=== PATIENT | female | born 1940 | race Caucasian/White ===

== ENCOUNTER → 2019-01-14 10:30 | Outpatient (CLI) | payer MEDICARE, BC, SELFPAY ==
--- NOTE | 2019-01-14 10:37 | XR_ITS ---
PROCEDURE: XR SHOULDER RT MIN 2V CLINICAL INDICATION: RT SHOULDER PAIN COMPARISON: No exams were available for comparison FINDINGS: There are mild osteoarthritic changes of the acromioclavicular joint. There is mild subacromial stenosis. No fracture or dislocation is evident. No lytic or blastic change. The glenohumeral joint has an unremarkable appearance. IMPRESSION: Acromioclavicular arthropathy with subacromial stenosis Dictated by: Carson Pena MD 01/14/2019 10:48 Signed by: <Electronically signed by Carson Pena MD in [place]> 01/14/2019 10:48
== END ==
PROVIDERS: PCP Internal Medicine; Visit Provider Internal Medicine
DX: M25.511 Pain in right shoulder (principal)
CPT/HCPCS: 73030

== ENCOUNTER → 2020-09-19 10:53 | Outpatient (CLI) | payer MEDICARE, BC, SELFPAY ==
--- NOTE | 2020-09-19 | XR_ITS ---
PROCEDURE: XR LUMBAR SPINE MIN 4V CLINICAL INDICATION: RT SCIATICA COMPARISON: No exams were available for comparison FINDINGS: Lumbar scoliosis convex left with 7 mm lateral translation of L4 on L5. There are 6 lumbar vertebra. No acute fracture or dislocation is evident. There is multilevel lumbar spondylosis with degenerative disc disease from L1-S1. 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 There is 5 mm retrolisthesis of L3 on L4. Degenerative changes are present in the SI joints. No lytic or blastic change. 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 Dictated by: Carson Pena MD 09/19/2020 11:58 Carson Pena MD in [place] 09/19/2020 11:58
--- NOTE | 2020-09-19 | XR_ITS ---
PROCEDURE: XR KNEE RT 3V CLINICAL INDICATION: RT KNEE PAIN COMPARISON: CR [id number] KNEE-3 VIEWS-RT from 09/05/2014 FINDINGS: No fracture or dislocation. No lytic or blastic change. There is normal mineralization. There are moderate osteoarthritic changes of the medial compartment with mild osteoarthritis of the lateral compartment and patellofemoral joint. Mildly prominent osteophytes are present medially. No acute fracture or dislocation. There is some heterogeneous increased density in the intramedullary region of the distal femur and may be due to a bone infarction. This is slightly become more sclerotic compared to the previous exam. The osteoarthritic changes at the medial compartment are slightly progressed Other findings:None. IMPRESSION: Osteoarthritis of all 3 compartments greater at the medial compartment. Dictated by: Carson Pena MD 09/19/2020 11:59 Carson Pena MD in [place] 09/19/2020 11:59
== END ==
PROVIDERS: PCP Internal Medicine; Visit Provider Internal Medicine
DX: M54.31 Sciatica, right side (principal); M25.561 Pain in right knee
CPT/HCPCS: 72110; 73562

== ENCOUNTER → 2021-06-25 11:46 | Outpatient (CLI) | payer MEDICARE, BC, SELFPAY ==
[2021-06-25 13:37] LABS: Basophils # 0.2 K/mm3 (0-0.2); Basophils % 1.6 % (0.1-2.0); Eosinophils # 0.3 K/mm3 (0.0-0.4); Eosinophils % 2.2 % (0.1-12.0); Hematocrit 41.5 % (37.0-47.0); Hemoglobin 13.1 g/dL (12.2-16.2); Lymphocytes # 3.3 K/mm3 (0.7-4.5); Mean Corpuscular HGB Conc 31.5 g/dL (31.8-35.4); Mean Corpuscular Volume 95.1 fl (81-99); Mean Platelet Volume 8.7 fl (7.4-10.4); Monocytes # 0.9 K/mm3 (0.1-1.0); Monocytes % 7.1 % (1.7-9.3); Neutrophils # 8.4 K/mm3 (1.8-7.8); Neutrophils % 64.1 % (37.0-80.0); Platelet Count 373 K/mm3 (142-424); Red Blood Count 4.36 M/mm3 (4.20-5.40); Red Cell Distribution Width 13.2 % (11.5-17.5); White Blood Count 13.1 K/mm3 (4.8-10.8)
[2021-06-25 14:30] LABS: Alanine Aminotransferase 21 U/L (12-78); Albumin Level 4.4 g/dl (3.5-5.0); Albumin/Globulin Ratio 1.6 (1.1-1.8); Alkaline Phosphatase 88 U/L (38-126); Anion Gap 14.1 mEq/L (5-15); Aspartate Amino Transferase 31 U/L (14-36); Bilirubin,Total 0.6 mg/dl (0.2-1.3); Blood Urea Nitrogen 17 mg/dl (7-17); Calcium 10.2 mg/dl (8.4-10.2); Carbon Dioxide 27 mmol/L (22.0-30.0); Chloride 102 mmol/L (98-107); Chol/HDL Ratio 2.3 (1-3.5); Cholesterol 137 mg/dl (140-200); Estimated Glomerular Filt Rate 60 ml/min (>60); GFR (African American) 73 ML/MIN (>60); Globulin 2.7 g/dL (1.3-3.2); Glucose 94 mg/dl (74-100); HDL Cholesterol 59 mg/dl (40-60); Potassium 5.1 mmoL/L (3.5-5.1); Sodium 138 mmol/L (136-145); Total Protein,Serum 7.1 g/dl (6.3-8.2); Triglycerides 149 mg/dl (30-150); VLDL Cholesterol 30 mg/dL (0-40)
[2021-06-25 14:40] LABS: Microalbumin < 6.000 mg/L (0-16.7)
[2021-06-25 14:41] LABS: Direct LDL Cholesterol 50.42 mg/dL (100-129)
[2021-06-25 15:01] LABS: Thyroid Stimulating Hormone 0.83 uIU/mL (0.465-4.68)
[2021-06-25 15:04] LABS: Hemoglobin A1C 6.1 % (4.0-6.0)
== END ==
PROVIDERS: Visit Provider Internal Medicine
DX: E11.42 Type 2 diabetes mellitus with diabetic polyneuropathy (principal); E78.5 Hyperlipidemia, unspecified; I10 Essential (primary) hypertension; J44.9 Chronic obstructive pulmonary disease, unspecified
CPT/HCPCS: 80053; 80061; 82043; 83036; 84443; 85025

== ENCOUNTER 2021-07-30 10:00 | Outpatient (RCR) | payer MEDICARE, BC, SELFPAY ==
--- NOTE | 2021-05-14 12:03 | HMH.PTOPEV ---
PT Outpatient Evaluation Rehab PT Outpatient Evaluation Start: 05/14/21 11:01 Freq: Status: Active Protocol: Document 05/14/21 11:30 SLIM (Rec: 05/14/21 12:03 SLIM [id number]) Electronically Signed By Manny Interiano, PT 05/14/21 11:30 Outpatient Therapy Subjective History Subjective History Pt reports h/o chronic right knee pain for ~6 months. Pt reports anterior and lateral aspect right knee pain, increased w/'being up on my feet'. Recent Xray of right knee has revealed tricompartment OA. PMH: chronic LBP Chief Complaint Pain,Stiff Symptom Type Ache,Dull Symptoms Relieved By Rest/Positioning,Heat Symptoms Aggravated By Standing,Physical Activity, Walking Prior Functional Limitations Housework,Standing,Walking, Stairs Current Functional Limitations Housework,Standing,Walking, Stairs Symptom Description Constant but Variable Level of pain today (0-10) 3 Pain scale - at its best (0-10) 3 Pain scale - at its worst (0-10) 8 Hip/Knee Eval Gait Observation General Gait Pattern Observation Antalgic Gait Assistive Device Assistive Devices None / NA Palpation Tenderness right Knee Palpation Finding Tenderness Knee Palpation Overall Comment lateral jt line 1-2/4 MMT Hip Flexion Strength Grade 3+ Fair+ Hip Abduction Strength Grade 4- Good- Hip Adduction Strength Grade 4- Good- Hip External Rotation Strength Grade 4 Good Hip Internal Rotation Strength Grade 4 Good Knee Extension Strength Grade 4 Good Knee Flexion Strength Grade 4 Good ROM Knee Flexion Active Range of Motion ( 0-132 degrees) Effusion joint effusion knee exam standard right Mid - Patellar Circumerential Measure ( 36 cm) Outpatient Therapy Assessment Impairments Problems/Impairmments Palpation Tenderness,Impaired Range of Motion,Impaired Strength,Impaired Gait Pattern ,Impaired Walking,Impaired Standing,Impaired Household Care,Impaired Stair Climbing, Subjective C/O Pain,Impaired Self Care/Self Management Prognosis Rehab Potential Good Clinical Impression Consistent with Diagnosis Yes Short Term Goals Number of Weeks 4 Decreased Palpatio
== END 2021-07-30 10:05 | disposition home or self-care (01) ==
LOC: PT 10:00
PROVIDERS: PCP Internal Medicine; Visit Provider Internal Medicine
DX: M25.561 Pain in right knee (principal)
CPT/HCPCS: 97010; 97014; 97110; 97140; 97163; 97164; 97530; G0283

== ENCOUNTER → 2021-08-06 15:41 | Outpatient (CLI) | payer MEDICARE, BC, SELFPAY ==
--- NOTE | 2021-08-06 15:49 | XR_ITS ---
FINAL REPORT CLINICAL HISTORY: KNEE PAIN, pt unable to fully extend leg COMPARISON: September 19, 2020 FINDINGS: RIGHT KNEE 3 views of the right knee were obtained. There is no acute fracture or dislocation. There is moderate narrowing of the medial compartment joint space. There are moderate hypertrophic changes of the medial joint margin. Soft tissues are unremarkable. IMPRESSION: Moderate narrowing of the medial compartment joint space. Moderate hypertrophic changes of the medial joint margin. Reviewed, Interpreted and Dictated by Robbi Linder MD Transcribed by Rachana Ryan Authenticated by Robbi Linder MD on 08/06/2021 04:44:09 PM [facility]
--- NOTE | 2021-08-06 15:49 | XR_ITS ---
FINAL REPORT CLINICAL HISTORY: CHRONIC HIP PAIN, nki FINDINGS: RIGHT HIP Two views of the right hip including an AP pelvis demonstrate no acute fracture or dislocation. There is advanced right hip joint space narrowing and moderate left hip joint space narrowing. There is degenerative cyst formation in the right acetabulum and femoral head consistent with osteoarthritis. There is moderate protrusio deformity the right acetabulum. There are hypertrophic changes of degenerative disc disease in the lower lumbar spine. There is no soft tissue abnormality. IMPRESSION: Findings consistent with osteoarthritis. Reviewed, Interpreted and Dictated by Robbi Linder MD Transcribed by Rachana Ryan Authenticated by Robbi Linder MD on 08/06/2021 04:44:10 PM [facility]
== END ==
PROVIDERS: PCP Internal Medicine; Visit Provider Internal Medicine
DX: M25.551 Pain in right hip (principal); M25.561 Pain in right knee
CPT/HCPCS: 73502; 73562

== ENCOUNTER → 2021-12-25 11:54 | Outpatient (CLI) | payer MEDICARE, BC, SELFPAY ==
[2021-12-25 13:45] LABS: Chloride 102 mmol/L (98-107)
[2021-12-25 13:46] LABS: Sodium 138 mmol/L (136-145)
[2021-12-25 13:48] LABS: Alanine Aminotransferase 24 U/L (12-78); Anion Gap 14.1 mEq/L (5-15); Aspartate Amino Transferase 35 U/L (14-36); Blood Urea Nitrogen 19 mg/dl (7-17); Carbon Dioxide 28 mmol/L (22.0-30.0); Estimated Glomerular Filt Rate 53 ml/min (>60); GFR (African American) 64 ML/MIN (>60)
[2021-12-25 13:49] LABS: Albumin Level 4.6 g/dl (3.5-5.0); Albumin/Globulin Ratio 1.7 (1.1-1.8); Alkaline Phosphatase 104 U/L (38-126); Bilirubin,Total 0.7 mg/dl (0.2-1.3); Calcium 10.4 mg/dl (8.4-10.2); Chol/HDL Ratio 2.4 (1-3.5); Cholesterol 153 mg/dl (140-200); Globulin 2.7 g/dL (1.3-3.2); Glucose 111 mg/dl (74-100); HDL Cholesterol 63 mg/dl (40-60); Total Protein,Serum 7.3 g/dl (6.3-8.2); Triglycerides 193 mg/dl (30-150); VLDL Cholesterol 39 mg/dL (0-40)
[2021-12-25 13:52] LABS: Potassium 6.1 mmoL/L (3.5-5.1)
[2021-12-25 14:44] LABS: Hemoglobin A1C 6.2 % (4.0-6.0)
[2021-12-26 09:38] LABS: Direct LDL Cholesterol 55 mg/dL (100-129)
== END ==
PROVIDERS: PCP Internal Medicine; Visit Provider Internal Medicine
DX: E11.42 Type 2 diabetes mellitus with diabetic polyneuropathy (principal); E78.5 Hyperlipidemia, unspecified; Z79.84 Long term (current) use of oral hypoglycemic drugs
CPT/HCPCS: 80053; 80061; 83036

== ENCOUNTER 2021-12-25 15:09 | Emergency (ER) | payer MEDICARE, BC, SELFPAY ==
[2021-12-25 15:20] VITALS: BP 138/79; PULSE 72; RESP 18; TEMP 36.7; O2SAT 98; BMI 30.9
--- NOTE | 2021-12-25 15:21 | XR_ITS ---
FINAL REPORT CLINICAL HISTORY: FALL FINDINGS: LEFT ELBOW 3 views were obtained. There is moderate degenerative change with bony overgrowth anteriorly. There is a joint effusion or hemarthrosis. No fracture is identified. IMPRESSION: Joint effusion or hemarthrosis without a well-defined fracture. Reviewed, Interpreted and Dictated by Maco Mora III, MD Transcribed by Darryl Linton Authenticated and [facility]
--- NOTE | 2021-12-25 15:55 | HMH.EDUTC ---
[facility] – [place] Disposition Clinical Impression: Elbow contusion Qualifiers: Encounter type: initial encounter Laterality: left Qualified Code(s): S50.02XA - Contusion of left elbow, initial encounter Disposition: Home, Self-Care Condition on Discharge: Good Instructions: How To Perform RICE (Rest, Ice, Compress, Elevate) Additional Instructions: *RICE, Rest the extremity, Ice 15-20 minutes 3-4 times daily, Compress- wear the gunnar wrap as discussed as much as possible to help reduce swelling and pain, Elevate the extremity when at rest *Gunnar wrap and sling is for support and help control swelling, use it except in the shower. Be sure that is not to tight but not to loose either *Elevate when resting *Ibuprofen as directed on package every 6-8 hours as needed for pain an inflammation if your doctor has said you can take it If need something more can take Tylenol in between doses of Ibuprofen to help Immediately follow up with your family doctor for new or worsening of symptoms, or no noticeable improvement over the next 3-[address] Retana office for appointment on Thursday Straight to ER if any life threatening symptoms Referrals: Hai House MD [Primary Care Provider] - As needed Anthony Tsai JR, MD [Physician] - As needed (Call office tomorrow for appointment on Thursday) Time of Disposition: 16:30 Medical Decision Making - Jacky Inquiry Pt receiving controlled substance: No Jacky was queried for this patient: No Vital Signs: 12/25/21 15:20 Temperature 98.0 F Temperature Source Oral Pulse Rate [Right Brachial] 72 Respiratory Rate 18 Blood Pressure [Right Arm] 138/79 Blood Pressure Mean [Right Arm] 98 Blood Pressure Source [Right Arm] Automatic Cuff Blood Pressure Position [Right Arm] Sitting 02 Sat by Pulse Oximetry 98 Oxygen Delivery Method Room Air - Radiology Data #1 Image(s): Elbow Image Reviewed: Yes I have reviewed radiologist's interpretation FINDINGS: LEFT ELBOW 3 views were obtained. There is moderate degenerative change with bony overgrowth anteriorly. There is a joint effusion or hemarthrosis. No fracture is identified. IMPRESSION: Joint effusion or hemarthrosis without a well-defined fracture. - Physician Consults Physician Consulted: Dr Tsai Time: 16:31 Reason -: Orthopedic Eval/Care Comment/Response: Spoke with Dr Tsai about xray reading and he advised to have her follow up in the office on Thursday and agreed with plan of care JUAN acewrap and sling [facility] – [place] HPI - General Stated complaint: AO 12/25 @1400 FELL HURT left elbow Time Seen by Provider: 12/25/21 15:55 Mode of Arrival: Ambulatory Source of Information: Patient Limitations: No Limitations Description of Symptoms (Recalled from Triage Doc. by RN): PATIENT C/O PAIN TO LEFT ELBOW AFTER FALLING ON IT HEENT Symptoms (Recalled from RN notes): No Resp Symptoms (Recalled from RN notes): No Skin Symptoms (Recalled from RN notes): No MS Symptoms (Recalled from RN notes): Yes Functional Status (Recalled from RN notes): WNL - History of Present Illness Provider Complaint: Patient states that she walked out on the deck and it had been raining and it was a little wet and she slipped and fell and landed on her left elbow area States that she has been having pain in left elbow with movement ever since so she came in to get it checked out - Related Data Home Medications Medication Instructions Recorded Confirmed atorvastatin 20 mg tablet 20 mg PO DAILY tab 08/30/21 08/30/21 levothyroxine 88 mcg tablet 88 mcg PO DAILY tab 08/30/21 08/30/21 meloxicam 7.5 mg tablet 7.5 mg PO DAILY tab 08/30/21 08/30/21 metformin 500 mg tablet 500 mg PO DAILY tab 08/30/21 08/30/21 sucralfate 1 gram tablet 1 g PO ONCE tab 08/30/21 08/30/21 Allergies Allergy/AdvReac Type Severity Reaction Status Date / Time levofloxacin Allergy Verified 12/25/21 15:35 Penicillins Allergy Verified 12/25/21 15:35 - Worker's Comp Is this a Worker
[2021-12-25 16:37] VITALS: BP 133/88; PULSE 68; RESP 16; TEMP 36.8; O2SAT 99
== END 2021-12-25 16:40 | disposition home or self-care (01) ==
PROVIDERS: Emergency Provider Nurse Practitioner; PCP Internal Medicine
DX: S50.02XA Contusion of left elbow, initial encounter (principal); W01.0XXA Fall on same level from slipping, tripping and stumbling without subsequent striking against object, initial encounter
CPT/HCPCS: 73080; 80053; 80061; 83036; 99212; G0463

== ENCOUNTER → 2022-01-01 12:25 | Outpatient (CLI) | payer MEDICARE, BC, SELFPAY ==
[2022-01-01 15:27] LABS: Anion Gap 14.4 mEq/L (5-15); Blood Urea Nitrogen 14 mg/dl (7-17); Calcium 9.7 mg/dl (8.4-10.2); Carbon Dioxide 25 mmol/L (22.0-30.0); Chloride 101 mmol/L (98-107); Estimated Glomerular Filt Rate 53 ml/min (>60); GFR (African American) 64 ML/MIN (>60); Glucose 151 mg/dl (74-100); Potassium 4.4 mmoL/L (3.5-5.1); Sodium 136 mmol/L (136-145)
== END ==
PROVIDERS: PCP Internal Medicine; Visit Provider Internal Medicine
DX: S50.02XA Contusion of left elbow, initial encounter (principal)
CPT/HCPCS: 80048

== ENCOUNTER → 2022-01-08 09:20 | Outpatient (CLI) | payer MEDICARE, BC, SELFPAY ==
--- NOTE | 2022-01-08 09:28 | XR_ITS ---
FINAL REPORT CLINICAL HISTORY: left elbow pain COMPARISON: December 25, 2021 FINDINGS: LEFT ELBOW Three views were obtained. There is a large fracture fragment on the lateral view that lies superior to the radial head. The fracture fragment appears to arise from the lateral margin of the radial head. The fracture fragment measures 1.7 cm. The joint spaces are intact. The previously noted joint effusion has decreased in size. IMPRESSION: Radial head fracture. Reviewed, Interpreted and Dictated by Robbi Linder MD Transcribed by Shonda Gonzalez Authenticated and [facility]
--- NOTE | 2022-01-08 10:21 | XR_ITS ---
FINAL REPORT CLINICAL HISTORY: Pt fell 2 wks ago, pain @ ulnar head of Lt wrist FINDINGS: LEFT WRIST Three views of the left wrist were obtained. There is a well corticated ossific density distal to the ulna that measures 9 mm. There is no significant positive or negative ulnar variance. There are advanced changes of osteoarthritis at the basilar joint. The soft tissues are unremarkable. IMPRESSION: Well corticated ossific density distal to the ulna. Advanced changes of osteoarthritis. Reviewed, Interpreted and Dictated by Robbi Linder MD Transcribed by Shonda Gonzalez Authenticated and [facility]
== END ==
PROVIDERS: PCP Internal Medicine; Visit Provider Nurse Practitioner Acute Care
DX: M25.532 Pain in left wrist; S50.02XA Contusion of left elbow, initial encounter
CPT/HCPCS: 73080; 73110

== ENCOUNTER 2022-01-20 15:00 | Emergency (ER) | payer MEDICARE, BC, SELFPAY ==
[2022-01-20 15:03] VITALS: BP 191/108; PULSE 122; RESP 18; O2SAT 95; BMI 26.6
--- NOTE | 2022-01-20 15:05 | PC.NURSE ---
stroke alert called, notified radiology
--- NOTE | 2022-01-20 15:06 | PC.NURSE ---
HATTIE CHACON at
[2022-01-20 15:10] VITALS: BMI 27.3
--- NOTE | 2022-01-20 15:10 | CT_ITS ---
PROCEDURE INFORMATION: Exam: CTA Neck With Contrast Exam date and time: 01/20/2022 3:17 PM Age: 81 years old Clinical indication: Stroke-like symptoms; Altered mental status/memory loss; Additional info: Stroke alert TECHNIQUE: Imaging protocol: Computed tomographic angiography of the neck with contrast. 3D rendering (Not supervised by radiologist): MIP and/or 3D reconstructed images were created by the technologist. Radiation optimization: All CT scans at this facility use at least one of these dose optimization techniques: automated exposure control; mA and/or kV adjustment per patient size (includes targeted exams where dose is matched to clinical indication); or iterative reconstruction. Contrast material: ISOVUE; Contrast volume: 100 ml; Contrast route: INTRAVENOUS (IV); COMPARISON: No relevant prior exams. FINDINGS: Right common carotid artery: No stenosis. No dissection or occlusion. Right internal carotid artery: Nonflow limiting plaque of the bulb. The lumen is narrowed by 20-30%. The remaining artery is patent. No flow limiting stenosis or occlusion. Right external carotid artery: Flow-limiting plaque at the origin with the lumen narrowed by 70-80%. Branch vessels fill normally. Left common carotid artery: No stenosis. No dissection or occlusion. Left internal carotid artery: Flow-limiting stenosis of the bulb with the lumen narrowed by 80-90%. The more distal artery fills normally. Left external carotid artery: Flow-limiting plaque at the origin with the lumen narrowed by 90-99%. Right vertebral artery: No stenosis. No dissection or occlusion. Left vertebral artery: No stenosis. No dissection or occlusion. Soft tissues: Normal. No significant soft tissue swelling. Bones/joints: Lnot-mg-jgwqqyee degenerative changes of the spine. Diffuse idiopathic skeletal hyperostosis. No fractures. IMPRESSION: 1. Flow-limiting stenosis of the left carotid bulb with the lumen narrowed by 80-90%. 2. Non flow-limiting plaque of the right carotid bulb. 3. Flow-limiting plaque of the proximal external carotid arteries bilaterally. REFERENCES: NASCET CRITERIA. The degree of stenosis in the cervical segment of the internal carotid artery is based on NASCET criteria. Normal is no stenosis. Mild is less than 50% stenosis. Moderate is 50-69% stenosis. Severe is 70% to 99% stenosis. Total occlusion is no detectable patent lumen.
--- NOTE | 2022-01-20 15:10 | CT_ITS ---
PROCEDURE INFORMATION: Exam: CT Head Without Contrast Exam date and time: 01/20/2022 3:09 PM Age: 81 years old Clinical indication: Stroke-like symptoms; Altered mental status/memory loss; Additional info: Stroke alert TECHNIQUE: Imaging protocol: Computed tomography of the head without contrast. Radiation optimization: All CT scans at this facility use at least one of these dose optimization techniques: automated exposure control; mA and/or kV adjustment per patient size (includes targeted exams where dose is matched to clinical indication); or iterative reconstruction. Other technique: STROKE PROTOCOL was implemented. COMPARISON: No relevant prior studies available. FINDINGS: Brain: There is low attenuation abnormality in the periventricular white matter consistent with chronic microvascular ischemic changes. There are chronic brainstem ischemic changes. There is basal ganglia calcification. There is moderate cerebral and cerebellar atrophy. There is moderate intracranial vascular calcification. Cerebral ventricles: No ventriculomegaly. Paranasal sinuses: Visualized sinuses are unremarkable. No fluid levels. Mastoid air cells: Visualized mastoid air cells are well aerated. Bones/joints: Unremarkable. No acute fracture. Soft tissues: Unremarkable. IMPRESSION: 1. There is low attenuation abnormality in the periventricular white matter consistent with chronic microvascular ischemic changes. If an acute infarct is a clinical concern, follow-up MRI with diffusion imaging is recommended. 2. There are chronic brainstem ischemic changes. 3. There is moderate cerebral and cerebellar atrophy. ASSESSMENT: ASPECTS (Trini Stroke Program Early CT Score) is 10.
--- NOTE | 2022-01-20 15:10 | XR_ITS ---
PROCEDURE INFORMATION: Exam: XR Chest Exam date and time: 01/20/2022 3:40 PM Age: 81 years old Clinical indication: Shortness of breath; Additional info: Sob/cp TECHNIQUE: Imaging protocol: Radiologic exam of the chest. Views: 1 view. COMPARISON: CT ANGIO NECK 01/20/2022 3:17 PM FINDINGS: Lungs: Atelectasis and/or early infiltrative changes noted within both lung bases. Bilateral hyperinflation is present. Pleural spaces: Unremarkable. No pleural effusion. No pneumothorax. Heart/Mediastinum: Unremarkable. No cardiomegaly. Diaphragm: There is nonspecific elevation of the right hemidiaphragm. Bones/joints: Unremarkable. IMPRESSION: 1. Atelectasis and/or early infiltrative changes noted within both lung bases. 2. Bilateral hyperinflation is present.
--- NOTE | 2022-01-20 15:10 | CT_ITS ---
PROCEDURE INFORMATION: Exam: CTA Head With Contrast, Arteriography Exam date and time: 01/20/2022 3:17 PM Age: 81 years old Clinical indication: Stroke-like symptoms; Altered mental status/memory loss; Additional info: Stroke alert TECHNIQUE: Imaging protocol: Computed tomographic angiography of the head with contrast. Exam focused on the arteries. 3D rendering (Not supervised by radiologist): MIP and/or 3D reconstructed images were created by the technologist. Radiation optimization: All CT scans at this facility use at least one of these dose optimization techniques: automated exposure control; mA and/or kV adjustment per patient size (includes targeted exams where dose is matched to clinical indication); or iterative reconstruction. Contrast material: ISOVUE; Contrast volume: 100 ml; Contrast route: INTRAVENOUS (IV); COMPARISON: CT HEAD/BRAIN WO CON 01/20/2022 3:09 PM FINDINGS: ANTERIOR CIRCULATION: Right internal carotid artery: Unremarkable. Intracranial segment is patent with no significant stenosis. No aneurysm. Right middle cerebral artery: Unremarkable. No occlusion or significant stenosis. No aneurysm. Right anterior cerebral artery: Unremarkable. No occlusion or significant stenosis. No aneurysm. Left internal carotid artery: Unremarkable. Intracranial segment is patent with no significant stenosis. No aneurysm. Left middle cerebral artery: Unremarkable. No occlusion or significant stenosis. No aneurysm. Left anterior cerebral artery: Unremarkable. No occlusion or significant stenosis. No aneurysm. POSTERIOR CIRCULATION: Right vertebral artery: Unremarkable. No occlusion or significant stenosis. No aneurysm. Left vertebral artery: Unremarkable. No occlusion or significant stenosis. No aneurysm. Basilar artery: Unremarkable. No occlusion or significant stenosis. No aneurysm. Right posterior cerebral artery: Unremarkable. No occlusion or significant stenosis. No aneurysm. Left posterior cerebral artery: Normal variant origin. Otherwise, unremarkable. No flow-limiting stenosis or occlusion. Brain: No acute intracranial changes. Chronic microvascular ischemia. Generalized cerebral atrophy. Cerebral ventricles: No ventriculomegaly. Bones/joints: Unremarkable. No acute fracture. Soft tissues: Unremarkable. IMPRESSION: Unremarkable intracranial vasculature.
--- NOTE | 2022-01-20 15:10 | HMH.EDNEU ---
Discharge Plan Disposition Patient Disposition: Xfer Other Condition: Good Prescriptions Prescriptions: No Action meloxicam 7.5 mg tablet 7.5 mg PO DAILY Label Comments: TAKE 1 TABLET BY MOUTH TWICE DAILY WITH FOOD FOR ARTHRITIS/PAIN levothyroxine 88 mcg tablet 88 mcg PO DAILY Label Comments: TAKE 1 TABLET BY MOUTH ONCE DAILY FOR THYROID metformin 500 mg tablet 500 mg PO BID Label Comments: TAKE 1 TABLET BY MOUTH TWICE DAILY WITH MEALS atorvastatin 20 mg tablet 20 mg PO DAILY Label Comments: TAKE 1 TABLET BY MOUTH EVERY DAY AT BEDTIME sucralfate 1 gram tablet 1 g PO ACHS [id number] serr [Osteo Bi-Flex (5-Loxin)] 1,500-400-100 mg-unit-mg tablet 1 tab PO DAILY Rx Instructions: give after food/meal Co [id number] E-Fish Oil 25-150-200 mg-mg-unit capsule 1 cap PO DAILY Linzess 72 mcg capsule 72 mcg PO DAILY loratadine [Claritin] 10 mg tablet 10 mg PO DAILY cyanocobalamin (vitamin B-12) 1,000 mcg capsule 1,000 mcg PO DAILY Referrals Follow up/Referrals: Hai House MD [Primary Care Provider] - See instructions Clinical Impressions Clinical Impression: Stroke-like symptoms, Carotid artery stenosis Discharge ED Provider: Corey Farnsworth HPI General Chief Complaint: Neuro Symptoms/Deficit Stated Complaint: right arm stiffness Time Seen by Provider: 01/20/22 15:13 Mode of Arrival: Ambulatory Source of Information: Spouse History of Present Illness HPI Narrative: 81-year-old female with history of hyperlipidemia, hypertension, was recently taken off of her blood pressure medication, enalapril due to potassium abnormality. She presents with speech deficit and right arm numbness onset around 130 today. 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 They both report symptoms are somewhat improved at this time. She denies headache, blurry or double vision, weakness of the extremities. Denies any prior history of stroke or intracranial hemorrhage. She is not on any anticoagulant. No fevers chills, nausea, vomiting or any other symptoms at this time. Stroke alert called upon arrival Time: 15:14 Date last observed normal: 01/20/22 Time last observed normal: 13:30 Timing confirmed by: spouse Related Data Home Medications Medication Instructions Recorded Confirmed atorvastatin 20 mg tablet 20 mg PO DAILY Cholesterol 08/30/21 01/20/22 levothyroxine 88 mcg tablet 88 mcg PO DAILY hypothyroid 08/30/21 01/20/22 meloxicam 7.5 mg tablet 7.5 mg PO DAILY Arthritis 08/30/21 01/20/22 metformin 500 mg tablet 500 mg PO BID Diabetes 08/30/21 01/20/22 cyanocobalamin (vitamin B-12) 1,000 mcg PO DAILY Supplement 01/08/22 01/20/22 1,000 mcg capsule glucosamine [id number] 1 tab PO DAILY Supplement 01/08/22 01/20/22 chelsie 1,500 mg-400 unit-100 mg tablet (Osteo Bi-Flex (5-Loxin)) linaclotide 72 mcg capsule 72 mcg PO DAILY stomach 01/08/22 01/20/22 (Linzess) loratadine 10 mg tablet (Claritin) 10 mg PO DAILY allergies 01/08/22 01/20/22 sucralfate 1 gram tablet 1 g PO ACHS stomach 01/08/22 01/20/22 ubidecarenone-omega 3-vit E 25 1 cap PO DAILY 01/08/22 01/08/22 mg-150 (90-60) mg-200 unit capsule (Co B-[id number] E-Fish Oil) Allergies Allergy/AdvReac Type Severity Reaction Status Date / Time levofloxacin Allergy Verified 01/08/22 11:04 Penicillins Allergy Verified 01/08/22 11:04 Stroke Alert/NIH Score LOC Stroke Alert: Yes Stroke Alert date: 01/20/22 Stroke Alert time of activation: 15:15 Level of Consciousness: Alert LOC Questions: Answers both correctly LOC Commands: Obeys both correctly Facial/Visual Best Gaze: Normal Visual: No visual loss Facial Palsy: Normal Motor Motor Response, Left Arm: No drift/Amputation/Fused (Shank Skinner strength
--- NOTE | 2022-01-20 15:10 | PC.NURSE ---
fsbs 91
--- NOTE | 2022-01-20 15:11 | PC.NURSE ---
pt to CT via stretcher warehouse and receiving supervisor transporting pt.
--- NOTE | 2022-01-20 15:11 | PC.NURSE ---
Addendum entered by Hanna Childers RN 01/20/22 15:27: notified ER Original Note: per pt her PCP stopped her bp mediation enalapril on 12/25/21 r/t elevated potassium level.
[2022-01-20 15:16] LABS: POC Glucose,Bedside 91 (70-110)
[2022-01-20 15:23] LABS: Basophils # 0.1 K/mm3 (0-0.2); Eosinophils # 0.4 K/mm3 (0.0-0.4); Eosinophils % 2.8 % (0.1-12.0); Hematocrit 42.5 % (37.0-47.0); Hemoglobin 13.5 g/dL (12.2-16.2); Lymphocytes # 3.3 K/mm3 (0.7-4.5); Lymphocytes % 25.1 % (10-50); Mean Corpuscular HGB Conc 31.7 g/dL (31.8-35.4); Mean Corpuscular Hemoglobin 29.2 pg (27.0-31.2); Mean Platelet Volume 7.3 fl (7.4-10.4); Neutrophils # 8.2 K/mm3 (1.8-7.8); Neutrophils % 63.2 % (37.0-80.0); Platelet Count 402 K/mm3 (142-424); Red Blood Count 4.62 M/mm3 (4.20-5.40); Red Cell Distribution Width 13.7 % (11.5-17.5)
[2022-01-20 15:28] LABS: Alanine Aminotransferase 26 U/L (12-78); Albumin Level 4.3 g/dl (3.5-5.0); Albumin/Globulin Ratio 1.4 (1.1-1.8); Alkaline Phosphatase 139 U/L (38-126); Anion Gap 13.2 mEq/L (5-15); Aspartate Amino Transferase 39 U/L (14-36); Bilirubin,Total 0.3 mg/dl (0.2-1.3); Blood Urea Nitrogen 14 mg/dl (7-17); Calcium 9.9 mg/dl (8.4-10.2); Carbon Dioxide 24 mmol/L (22.0-30.0); Chloride 104 mmol/L (98-107); Creatinine Clearance Estimated 55 mL/min (50-200); Estimated Glomerular Filt Rate 80 ml/min (>60); GFR (African American) 97 ML/MIN (>60); Globulin 3.1 g/dL (1.3-3.2); Glucose 95 mg/dl (74-100); Magnesium 1.4 mg/dl (1.6-2.3); Potassium 4.2 mmoL/L (3.5-5.1); Sodium 137 mmol/L (136-145); Total Protein,Serum 7.4 g/dl (6.3-8.2)
--- NOTE | 2022-01-20 15:28 | PC.NURSE ---
pt return from CT at this time
[2022-01-20 15:31] LABS: Activated Partial Thrombo Time 24.5 seconds (22.8-30.6); INR 0.93 (0.9-1.1); Prothrombin Time 10.1 seconds (10.1-12.5)
--- NOTE | 2022-01-20 15:35 | ECG_ITS ---
APPROVED REPORT Exam: Resting ECG HR:110 bpm ECG Measurements Heart Rate 110 AXES SD 148 P 70 QRSd 84 QRS 64 QT 330 T 76 QTc 395 Conclusion SINUS TACHYCARDIA ABNORMAL RHYTHM ECG UNCONFIRMED REPORT Electronically signed by : Zeke Mims MD 01/21/2022 13:48:32
--- NOTE | 2022-01-20 15:37 | PC.NURSE ---
CT reading given to ER at this time.
--- NOTE | 2022-01-20 15:37 | PC.NURSE ---
vrad called at this time, wanting to verify that we have received CT head report on pt at this time.
[2022-01-20 15:40] LABS: Troponin I < 0.01 ng/ml (0.00-0.034)
--- NOTE | 2022-01-20 15:42 | PC.NURSE ---
rad at for portable cxr
[2022-01-20 15:48] VITALS: BP 162/95; PULSE 111; RESP 16; O2SAT 95
--- NOTE | 2022-01-20 16:15 | PC.NURSE ---
contacted [facility] to speak with stroke team per ER request
--- NOTE | 2022-01-20 16:22 | PC.NURSE ---
called [facility] for stroke team, they will call back
--- NOTE | 2022-01-20 16:56 | PC.NURSE ---
pt accepted at [facility] per Dr. Guzman
[2022-01-20 17:00] VITALS: BP 197/116; PULSE 121; RESP 20; O2SAT 97
[2022-01-20 17:01] LABS: Coronavirus 19, PCR Not Detected (NotDetected); Influenza A, PCR Not Detected (NotDetected); Influenza B, PCR Not Detected (NotDetected)
--- NOTE | 2022-01-20 17:01 | PC.NURSE ---
ER at discussing POC with pt and pt at this time. pt bp 197/116 HR 127 ER MD gave verbal order for Plavix 300 mg, states do not need to treat bp at this time but did ask me to start IVF 1L bolus
--- NOTE | 2022-01-20 17:13 | PC.NURSE ---
report called to LESLI Schreiber at [facility] ER at this time.
[2022-01-20 17:19] VITALS: BP 159/90; PULSE 120; RESP 20; O2SAT 96
[2022-01-20 17:19] LABS: Microscopic, Urine URINE MICROSCOPIC (MICROSCOPIC)
[2022-01-20 17:21] LABS: Appearance,Urine CLEAR (Clear); Bilirubin,Urine Negative (Negative); Blood, Urine TRACE-I (Negative); Color,Urine YELLOW (Yellow); Glucose,Urine (UA) Negative (Negative); Ketones,Urine Negative (Negative); Leukocyte Esterase,Urine Negative (Negative); Nitrate,Urine Negative (Negative); Protein,Urine Negative (Negative); Specific Gravity, Urine <= 1.005 (1.005-1.030); Urobilinogen,Urine 0.2 EU/dl (0.2)
--- NOTE | 2022-01-20 17:21 | PC.NURSE ---
[facility] notified of transfer
--- NOTE | 2022-01-20 17:26 | PC.NURSE ---
entered room to have pt sign transfer record. Pt and are on the phone with a family member. They are requesting that we call [facility] in [place] to see about transfer there. Stated to them that I will notify ER of their request and we will call [facility] and ask about transfer and let them know. ER updated, states to call [facility].
--- NOTE | 2022-01-20 17:32 | PC.NURSE ---
HATTIE CHACON speaking with stroke navigator at [facility]
--- NOTE | 2022-01-20 17:32 | PC.NURSE ---
shift change report given to pascual tovar and lauriern
[2022-01-20 17:42] LABS: Bacteria,Urine Trace /lpf; WBC,Urine Occasional #/hpf (0-3)
[2022-01-20 18:35] VITALS: BP 161/98; PULSE 112; RESP 18; TEMP 36.8; O2SAT 96
== END 2022-01-20 18:35 | disposition other institution (70) ==
PROVIDERS: Emergency Provider Emergency Medicine; PCP Internal Medicine
DX: R29.818 Other symptoms and signs involving the nervous system (principal); I65.29 Occlusion and stenosis of unspecified carotid artery; Z79.84 Long term (current) use of oral hypoglycemic drugs; Z79.899 Other long term (current) drug therapy; Z88.0 Allergy status to penicillin; Z88.1 Allergy status to other antibiotic agents; M19.90 Unspecified osteoarthritis, unspecified site; E11.9 Type 2 diabetes mellitus without complications; I10 Essential (primary) hypertension; E03.9 Hypothyroidism, unspecified; E78.00 Pure hypercholesterolemia, unspecified
CPT/HCPCS: 70450; 70496; 70498; 71045; 80053; 81001; 82962; 83735; 84484; 85025; 85610; 85730; 93005; 96365; 99291; C9803; Q9967; U0003; U0005

== ENCOUNTER → 2022-01-31 13:05 | Outpatient (CLI) | payer MEDICARE, BC, SELFPAY ==
[2022-01-31 15:54] LABS: Blood Urea Nitrogen 18 mg/dl (7-17); Calcium 9.8 mg/dl (8.4-10.2); Carbon Dioxide 29 mmol/L (22.0-30.0); Chloride 98 mmol/L (98-107); Estimated Glomerular Filt Rate 69 ml/min (>60); GFR (African American) 83 ML/MIN (>60); Glucose 72 mg/dl (74-100); Sodium 139 mmol/L (136-145)
== END ==
PROVIDERS: PCP Internal Medicine; Visit Provider Internal Medicine
DX: I10 Essential (primary) hypertension (principal); E87.5 Hyperkalemia; J44.9 Chronic obstructive pulmonary disease, unspecified
CPT/HCPCS: 80048

== ENCOUNTER → 2022-02-20 08:43 | Outpatient (CLI) | payer MEDICARE, BC, SELFPAY ==
--- NOTE | 2022-02-20 08:49 | XR_ITS ---
FINAL REPORT CLINICAL HISTORY: wrist sprain COMPARISON: January 08, 2022 FINDINGS: LEFT WRIST Three views demonstrate no acute fracture or dislocation. The visualized joint spaces are normally aligned. 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 There is a loose body adjacent to the trapezium which is stable. There is a chronic calcification distal to the ulna which is stable. IMPRESSION: Overall stable exam. Reviewed, Interpreted and Dictated by Maco Mora III, MD Transcribed by Rachana Ryan Authenticated and [facility]
--- NOTE | 2022-02-20 08:49 | XR_ITS ---
FINAL REPORT CLINICAL HISTORY: left elbow pain COMPARISON: January 08, 2022 FINDINGS: LEFT ELBOW 3 views were obtained. Again noted is a fracture of the lateral radial head. The radial head fracture fragment is in the antecubital fossa and is unchanged in position. There are mild degenerative changes. There is no soft tissue abnormality. IMPRESSION: Fracture of the lateral radial head with the fracture fragment in the antecubital fossa. Overall appearance is stable. Reviewed, Interpreted and Dictated by Maco Mora III, MD Transcribed by Rachana Ryan Authenticated and [facility]
== END ==
PROVIDERS: PCP Internal Medicine; Visit Provider Orthopaedic Surgery
DX: S63.502A Unspecified sprain of left wrist, initial encounter (principal); S52.122A Displaced fracture of head of left radius, initial encounter for closed fracture
CPT/HCPCS: 73080; 73110

== ENCOUNTER → 2022-05-05 12:31 | Outpatient (CLI) | payer MEDICARE, BC, SELFPAY ==
[2022-05-05 14:38] LABS: Basophils # 0.1 K/mm3 (0-0.2); Basophils % 0.7 % (0.1-2.0); Eosinophils # 0.2 K/mm3 (0.0-0.4); Eosinophils % 1.9 % (0.1-12.0); Hemoglobin 11.2 g/dL (12.2-16.2); Lymphocytes # 2.3 K/mm3 (0.7-4.5); Lymphocytes % 27.8 % (10-50); Mean Corpuscular HGB Conc 32.1 g/dL (31.8-35.4); Mean Corpuscular Hemoglobin 27.9 pg (27.0-31.2); Mean Corpuscular Volume 86.9 fl (81-99); Mean Platelet Volume 8.5 fl (7.4-10.4); Monocytes # 0.8 K/mm3 (0.1-1.0); Neutrophils # 4.9 K/mm3 (1.8-7.8); Neutrophils % 59.6 % (37.0-80.0); Platelet Count 443 K/mm3 (142-424); Red Blood Count 4.03 M/mm3 (4.20-5.40); Red Cell Distribution Width 15.5 % (11.5-17.5); White Blood Count 8.3 K/mm3 (4.8-10.8)
[2022-05-05 15:19] LABS: Alanine Aminotransferase 24 U/L (12-78); Albumin Level 4.2 g/dl (3.5-5.0); Albumin/Globulin Ratio 1.6 (1.1-1.8); Alkaline Phosphatase 114 U/L (38-126); Anion Gap 15.1 mEq/L (5-15); Aspartate Amino Transferase 31 U/L (14-36); Bilirubin,Total 0.2 mg/dl (0.2-1.3); Blood Urea Nitrogen 20 mg/dl (7-17); Calcium 9.9 mg/dl (8.4-10.2); Carbon Dioxide 23 mmol/L (22.0-30.0); Chloride 102 mmol/L (98-107); Chol/HDL Ratio 1.9 (1-3.5); Cholesterol 135 mg/dl (140-200); Estimated Glomerular Filt Rate 53 ml/min (>60); GFR (African American) 64 ML/MIN (>60); Globulin 2.7 g/dL (1.3-3.2); Glucose 110 mg/dl (74-100); HDL Cholesterol 72 mg/dl (40-60); Potassium 4.1 mmoL/L (3.5-5.1); Sodium 136 mmol/L (136-145); Total Protein,Serum 6.9 g/dl (6.3-8.2); Triglycerides 122 mg/dl (30-150); VLDL Cholesterol 24 mg/dL (0-40)
[2022-05-05 15:30] LABS: Direct LDL Cholesterol 37.04 mg/dL (100-129)
[2022-05-05 15:40] LABS: Hemoglobin A1C 5.9 % (4.0-6.0)
== END ==
PROVIDERS: PCP Internal Medicine; Visit Provider Internal Medicine
DX: E11.42 Type 2 diabetes mellitus with diabetic polyneuropathy (principal); I10 Essential (primary) hypertension; R53.83 Other fatigue; Z79.84 Long term (current) use of oral hypoglycemic drugs
CPT/HCPCS: 80053; 80061; 83036; 85025

== ENCOUNTER → 2022-09-03 12:50 | Outpatient (CLI) | payer MEDICARE, BC, SELFPAY ==
[2022-09-03 16:40] LABS: Basophils # 0.1 K/mm3 (0-0.2); Basophils % 0.6 % (0.1-2.0); Eosinophils # 0.2 K/mm3 (0.0-0.4); Eosinophils % 2.1 % (0.1-12.0); Hematocrit 34.8 % (37.0-47.0); Hemoglobin 10.8 g/dL (12.2-16.2); Lymphocytes # 2.6 K/mm3 (0.7-4.5); Lymphocytes % 29.6 % (10-50); Mean Corpuscular Hemoglobin 26.1 pg (27.0-31.2); Mean Corpuscular Volume 84.3 fl (81-99); Mean Platelet Volume 7.9 fl (7.4-10.4); Monocytes # 0.8 K/mm3 (0.1-1.0); Monocytes % 9.4 % (1.7-9.3); Neutrophils # 5.2 K/mm3 (1.8-7.8); Neutrophils % 58.3 % (37.0-80.0); Platelet Count 412 K/mm3 (142-424); Red Blood Count 4.13 M/mm3 (4.20-5.40); Red Cell Distribution Width 16.5 % (11.5-17.5); White Blood Count 8.9 K/mm3 (4.8-10.8)
[2022-09-03 16:55] LABS: Anion Gap 13.4 mEq/L (5-15); Blood Urea Nitrogen 17 mg/dl (7-17); Calcium 9.1 mg/dl (8.4-10.2); Carbon Dioxide 27 mmol/L (22.0-30.0); Chloride 101 mmol/L (98-107); Estimated Glomerular Filt Rate 60 ml/min (>60); GFR (African American) 73 ML/MIN (>60); Glucose 95 mg/dl (74-100); Potassium 4.4 mmoL/L (3.5-5.1); Sodium 137 mmol/L (136-145)
[2022-09-03 20:49] LABS: Hemoglobin A1C 5.9 % (4.0-6.0)
== END ==
PROVIDERS: PCP Internal Medicine; Visit Provider Internal Medicine
DX: E11.42 Type 2 diabetes mellitus with diabetic polyneuropathy (principal); I10 Essential (primary) hypertension; J44.9 Chronic obstructive pulmonary disease, unspecified; D64.9 Anemia, unspecified; M15.0 Primary generalized (osteo)arthritis; Z79.84 Long term (current) use of oral hypoglycemic drugs
CPT/HCPCS: 80048; 83036; 85025

== ENCOUNTER → 2022-12-03 13:18 | Outpatient (CLI) | payer MEDICARE, BC, SELFPAY ==
[2022-12-03 14:50] LABS: Basophils % 0.5 % (0.1-2.0); Eosinophils # 0.3 K/mm3 (0.0-0.4); Eosinophils % 2.8 % (0.1-12.0); Hematocrit 35.1 % (37.0-47.0); Hemoglobin 10.5 g/dL (12.2-16.2); Lymphocytes # 3.3 K/mm3 (0.7-4.5); Lymphocytes % 36.5 % (10-50); Mean Corpuscular Hemoglobin 24.1 pg (27.0-31.2); Mean Corpuscular Volume 80.4 fl (81-99); Mean Platelet Volume 7.1 fl (7.4-10.4); Monocytes # 0.8 K/mm3 (0.1-1.0); Monocytes % 8.8 % (1.7-9.3); Neutrophils # 4.6 K/mm3 (1.8-7.8); Neutrophils % 51.3 % (37.0-80.0); Platelet Count 362 K/mm3 (142-424); Red Blood Count 4.37 M/mm3 (4.20-5.40); Red Cell Distribution Width 15.6 % (11.5-17.5); White Blood Count 8.9 K/mm3 (4.8-10.8)
[2022-12-03 15:09] LABS: Alanine Aminotransferase 25 U/L (12-78); Albumin Level 4.4 g/dl (3.5-5.0); Albumin/Globulin Ratio 1.5 (1.1-1.8); Alkaline Phosphatase 118 U/L (38-126); Anion Gap 11.6 mEq/L (5-15); Aspartate Amino Transferase 33 U/L (14-36); Bilirubin,Total 0.3 mg/dl (0.2-1.3); Blood Urea Nitrogen 17 mg/dl (7-17); Calcium 9.7 mg/dl (8.4-10.2); Carbon Dioxide 28 mmol/L (22.0-30.0); Chloride 104 mmol/L (98-107); Chol/HDL Ratio 2.2 (1-3.5); Cholesterol 158 mg/dl (140-200); Estimated Glomerular Filt Rate 53 ml/min (>60); GFR (African American) 64 ML/MIN (>60); Glucose 86 mg/dl (74-100); HDL Cholesterol 72 mg/dl (40-60); Potassium 4.6 mmoL/L (3.5-5.1); Sodium 139 mmol/L (136-145); Total Protein,Serum 7.4 g/dl (6.3-8.2); Triglycerides 228 mg/dl (30-150); VLDL Cholesterol 46 mg/dL (0-40)
[2022-12-03 15:20] LABS: Direct LDL Cholesterol 48.15 mg/dL (100-129)
[2022-12-03 15:32] LABS: Hemoglobin A1C 6.6 % (4.0-6.0)
[2022-12-03 15:37] LABS: Thyroid Stimulating Hormone 2.76 uIU/mL (0.465-4.68)
[2022-12-03 15:54] LABS: Creatinine,Urine Random 21 mg/dL (Not Estab.)
[2022-12-03 16:01] LABS: Microalbumin < 6.000 mg/L (0-16.7)
== END ==
PROVIDERS: PCP Internal Medicine; Visit Provider Internal Medicine
DX: E11.59 Type 2 diabetes mellitus with other circulatory complications (principal); E11.42 Type 2 diabetes mellitus with diabetic polyneuropathy; I10 Essential (primary) hypertension; J44.9 Chronic obstructive pulmonary disease, unspecified; E03.9 Hypothyroidism, unspecified; E78.5 Hyperlipidemia, unspecified; M15.0 Primary generalized (osteo)arthritis; Z86.73 Personal history of transient ischemic attack (TIA), and cerebral infarction without residual deficits
CPT/HCPCS: 80053; 80061; 82043; 82570; 83036; 84443; 85025

== ENCOUNTER → 2023-01-05 10:03 | Outpatient (CLI) | payer MEDICARE, BC, SELFPAY ==
--- NOTE | 2023-01-05 10:09 | XR_ITS ---
FINAL REPORT CLINICAL HISTORY: MEAGAN SHOULDER PAIN COMPARISON: None FINDINGS: LEFT SHOULDER 3 views of the left shoulder were obtained. There is no acute fracture or dislocation. Mild hypertrophic changes of the AC joint. Visualized joint spaces are normally aligned. Soft tissues are unremarkable. IMPRESSION: No acute process. Reviewed, Interpreted and Dictated by Robbi Linder MD Transcribed by Candie Dennison Authenticated and [facility]
--- NOTE | 2023-01-05 10:09 | XR_ITS ---
FINAL REPORT CLINICAL HISTORY: MEAGAN SHOULDER PAIN COMPARISON: None FINDINGS: RIGHT SHOULDER Three views demonstrate no acute fracture or dislocation. There are mild hypertrophic changes in the AC joint. There are small osteophytes along the undersurface of the AC joint. The visualized joint spaces are normally aligned. The soft tissues are unremarkable. IMPRESSION: No acute process. Reviewed, Interpreted and Dictated by Robbi Linder MD Transcribed by Candie Dennison Authenticated and [facility]
== END ==
PROVIDERS: PCP Internal Medicine; Visit Provider Internal Medicine
DX: M25.511 Pain in right shoulder (principal); M25.512 Pain in left shoulder
CPT/HCPCS: 73030

== ENCOUNTER 2023-06-08 12:26 | Outpatient (CLI) | payer MEDICARE, BC, SELFPAY ==
[2023-06-08 14:52] LABS: Basophils # 0.1 K/mm3 (0-0.2); Basophils % 0.4 % (0.1-2.0); Eosinophils # 0.4 K/mm3 (0.0-0.4); Eosinophils % 2.4 % (0.1-12.0); Hematocrit 36.8 % (37.0-47.0); Hemoglobin 11.6 g/dL (12.2-16.2); Lymphocytes # 3.6 K/mm3 (0.7-4.5); Mean Corpuscular HGB Conc 31.6 g/dL (31.8-35.4); Mean Corpuscular Hemoglobin 25.5 pg (27.0-31.2); Mean Corpuscular Volume 80.7 fl (81-99); Monocytes # 1.1 K/mm3 (0.1-1.0); Monocytes % 6.5 % (1.7-9.3); Neutrophils # 12.1 K/mm3 (1.8-7.8); Neutrophils % 69.7 % (37.0-80.0); Platelet Count 398 K/mm3 (142-424); Red Blood Count 4.56 M/mm3 (4.20-5.40); White Blood Count 17.4 K/mm3 (4.8-10.8)
[2023-06-08 14:54] LABS: MANUAL DIFFERENTIAL MANUAL DIFFERENTIAL (MANUAL DIFF)
[2023-06-08 15:29] LABS: Lymphocytes % 28 % (10-50); Monocytes % 2 % (2-9); Neutrophils % 70 % (42-76); Platelet Estimate Normal; RBC Morphology Normal; Total Cells Counted 100
[2023-06-08 16:26] LABS: Alanine Aminotransferase 27 U/L (12-78); Albumin Level 4.3 g/dl (3.5-5.0); Albumin/Globulin Ratio 1.3 (1.1-1.8); Alkaline Phosphatase 104 U/L (38-126); Anion Gap 17.8 mEq/L (5-15); Aspartate Amino Transferase 35 U/L (14-36); Bilirubin,Total 0.4 mg/dl (0.2-1.3); Blood Urea Nitrogen 19 mg/dl (7-17); Calcium 9.2 mg/dl (8.4-10.2); Carbon Dioxide 27 mmol/L (22.0-30.0); Chloride 100 mmol/L (98-107); Chol/HDL Ratio 2.8 (1-3.5); Cholesterol 156 mg/dl (140-200); Estimated Glomerular Filt Rate 53 ml/min (>60); GFR (African American) 64 ML/MIN (>60); Globulin 3.3 g/dL (1.3-3.2); Glucose 114 mg/dl (74-100); HDL Cholesterol 55 mg/dl (40-60); Potassium 4.8 mmoL/L (3.5-5.1); Sodium 140 mmol/L (136-145); Total Protein,Serum 7.6 g/dl (6.3-8.2); Triglycerides 234 mg/dl (30-150); VLDL Cholesterol 47 mg/dL (0-40)
[2023-06-08 21:34] LABS: Creatinine,Urine Random 84 mg/dL (Not Estab.)
[2023-06-08 21:35] LABS: Microalbumin/Creatinine Ratio 37.2
[2023-06-08 22:36] LABS: Thyroid Stimulating Hormone 3.99 uIU/mL (0.465-4.68)
[2023-06-08 23:07] LABS: Hemoglobin A1C 6.8 % (4.0-6.0)
== END 2023-06-08 23:59 ==
LOC: LAB.DROPOF 12:26
PROVIDERS: PCP Internal Medicine; Visit Provider Internal Medicine
DX: E11.42 Type 2 diabetes mellitus with diabetic polyneuropathy (principal); E11.59 Type 2 diabetes mellitus with other circulatory complications; I10 Essential (primary) hypertension; E03.9 Hypothyroidism, unspecified; E78.5 Hyperlipidemia, unspecified; M15.0 Primary generalized (osteo)arthritis; Z79.84 Long term (current) use of oral hypoglycemic drugs
CPT/HCPCS: 80053; 80061; 82043; 82570; 83036; 84443; 85007; 85025

== ENCOUNTER 2023-07-07 16:44 | Outpatient (CLI) | payer MEDICARE, BC, SELFPAY ==
[2023-07-07 17:15] LABS: Basophils # 0.1 K/mm3 (0-0.2); Basophils % 0.5 % (0.1-2.0); Eosinophils # 0.4 K/mm3 (0.0-0.4); Eosinophils % 2.9 % (0.1-12.0); Hematocrit 36.5 % (37.0-47.0); Hemoglobin 11.4 g/dL (12.2-16.2); Lymphocytes # 3.9 K/mm3 (0.7-4.5); Lymphocytes % 31.7 % (10-50); Mean Corpuscular HGB Conc 31.3 g/dL (31.8-35.4); Mean Corpuscular Hemoglobin 25.1 pg (27.0-31.2); Mean Corpuscular Volume 80.3 fl (81-99); Mean Platelet Volume 8.2 fl (7.4-10.4); Monocytes # 1.1 K/mm3 (0.1-1.0); Monocytes % 8.8 % (1.7-9.3); Neutrophils # 6.9 K/mm3 (1.8-7.8); Neutrophils % 56.2 % (37.0-80.0); Platelet Count 377 K/mm3 (142-424); Red Blood Count 4.55 M/mm3 (4.20-5.40); White Blood Count 12.2 K/mm3 (4.8-10.8)
== END 2023-07-07 23:59 ==
PROVIDERS: PCP Internal Medicine; Visit Provider Internal Medicine
DX: I10 Essential (primary) hypertension; D64.9 Anemia, unspecified; D72.829 Elevated white blood cell count, unspecified; K59.00 Constipation, unspecified
CPT/HCPCS: 85025

== ENCOUNTER 2023-12-09 15:25 | Outpatient (CLI) | payer MEDICARE, BC, SELFPAY ==
[2023-12-09 12:00] LABS: Basophils # 0.1 K/mm3 (0-0.2); Basophils % 0.7 % (0.1-2.0); Eosinophils # 0.3 K/mm3 (0.0-0.4); Eosinophils % 2.3 % (0.1-12.0); Hematocrit 35.2 % (37.0-47.0); Hemoglobin 11.1 g/dL (12.2-16.2); Lymphocytes # 3.1 K/mm3 (0.7-4.5); Lymphocytes % 26.6 % (10-50); Mean Corpuscular HGB Conc 31.4 g/dL (31.8-35.4); Mean Corpuscular Hemoglobin 25.6 pg (27.0-31.2); Mean Corpuscular Volume 81.3 fl (81-99); Monocytes # 1.1 K/mm3 (0.1-1.0); Monocytes % 9.2 % (1.7-9.3); Neutrophils # 7.2 K/mm3 (1.8-7.8); Neutrophils % 61.1 % (37.0-80.0); Platelet Count 366 K/mm3 (142-424); Red Blood Count 4.33 M/mm3 (4.20-5.40); Red Cell Distribution Width 18.1 % (11.5-17.5); White Blood Count 11.7 K/mm3 (4.8-10.8)
[2023-12-09 13:56] LABS: Alanine Aminotransferase 28 U/L (12-78); Albumin Level 3.7 g/dl (3.5-5.0); Albumin/Globulin Ratio 1.4 (1.1-1.8); Alkaline Phosphatase 85 U/L (38-126); Anion Gap 12.3 mEq/L (5-15); Aspartate Amino Transferase 36 U/L (14-36); Bilirubin,Total 0.4 mg/dl (0.2-1.3); Blood Urea Nitrogen 16 mg/dl (7-17); Calcium 9.3 mg/dl (8.4-10.2); Carbon Dioxide 26 mmol/L (22.0-30.0); Chloride 106 mmol/L (98-107); Chol/HDL Ratio 2.7 (1-3.5); Cholesterol 129 mg/dl (140-200); Estimated Glomerular Filt Rate 53 ml/min (>60); GFR (African American) 64 ML/MIN (>60); Globulin 2.7 g/dL (1.3-3.2); Glucose 99 mg/dl (74-100); HDL Cholesterol 48 mg/dl (40-60); Potassium 4.3 mmoL/L (3.5-5.1); Sodium 140 mmol/L (136-145); Total Protein,Serum 6.4 g/dl (6.3-8.2); Triglycerides 197 mg/dl (30-150); VLDL Cholesterol 39 mg/dL (0-40)
[2023-12-09 14:06] LABS: Direct LDL Cholesterol 40.41 mg/dL (100-129)
[2023-12-10 09:45] LABS: Vitamin B12 778 pg/mL (239-931)
[2023-12-10 10:41] LABS: Total Iron Binding Capacity 399 ug/dL (265-497)
[2023-12-10 11:44] LABS: Iron 40 ug/dL (37-170)
== END 2023-12-09 23:59 | disposition home or self-care (01) ==
LOC: LAB.DROPOF 15:25
PROVIDERS: PCP Internal Medicine; Visit Provider Internal Medicine
DX: E11.59 Type 2 diabetes mellitus with other circulatory complications (principal); I10 Essential (primary) hypertension; E78.5 Hyperlipidemia, unspecified; D64.9 Anemia, unspecified
CPT/HCPCS: 80053; 80061; 82607; 83036; 83540; 83550; 85025

== ENCOUNTER 2023-12-10 01:48 | Emergency (ER) | payer MEDICARE, BC, SELFPAY ==
[2023-12-10] VITALS (10 sets, daily range): BP systolic 101–161; BP diastolic 50–69; PULSE 109–125; RESP 20–30; TEMP 35.5–37.2; O2SAT 91–94; BMI 29.4
--- NOTE | 2023-12-10 01:54 | ED_ITS ---
Discharge Plan Disposition Patient Disposition: Home, Self-Care Prescriptions Prescriptions: New sulfamethoxazole-trimethoprim 800-160 mg tablet 1 tab PO BID 7 Days Qty: 14 0RF No Action levothyroxine 88 mcg tablet 88 mcg PO DAILY Patient Comments: TAKE 1 TABLET BY MOUTH ONCE DAILY FOR THYROID metformin 500 mg tablet 500 mg PO BID Patient Comments: TAKE 1 TABLET BY MOUTH TWICE DAILY WITH MEALS atorvastatin 20 mg tablet 20 mg PO DAILY Patient Comments: TAKE 1 TABLET BY MOUTH EVERY DAY AT BEDTIME pantoprazole 40 mg tablet,delayed release (DR/EC) PO Patient Comments: TAKE 1 TABLET BY MOUTH ONCE DAILY metoprolol succinate 25 mg tablet extended release 24 hr 25 mg PO DAILY Patient Comments: TAKE 1 TABLET BY MOUTH ONCE DAILY AT BEDTIME clopidogrel 75 mg tablet 75 mg PO DAILY Patient Comments: TAKE 1 TABLET BY MOUTH ONCE DAILY nystatin 100,000 unit/gram cream topical Patient Comments: APPLY CREAM TOPICALLY THREE TIMES DAILY NEEDED TO RASH triamcinolone acetonide 0.1 % cream topical Patient Comments: APPLY TO SKIN RASH TOPICALLY 3 TIMES A DAY NEEDED Linzess 290 mcg capsule 290 mcg PO DAILY Patient Comments: TAKE 1 CAPSULE BY MOUTH ONCE DAILY FOR 10 DAYS nystatin 100,000 unit/gram cream 1 applic topical TID PRN (Reason: rash) Qty: 30 0RF triamcinolone acetonide 0.1 % cream 1 applic topical TID PRN (Reason: rash) Qty: 80 1RF loratadine [Claritin] 10 mg tablet 10 mg PO DAILY PRN (Reason: allergies) nitrofurantoin monohyd/m-cryst [Macrobid] 100 mg capsule 100 mg PO BID Qty: 14 0RF Rx Instructions: must administer with a meal/food lubiprostone [Amitiza] 24 mcg capsule 24 mcg PO DAILY Qty: 30 2RF azithromycin 250 mg tablet 250 mg PO .COMPLEX Qty: 6 0RF Rx Instructions: 250 mg orally; prednisone 10 mg tablet 10 mg PO BID Qty: 14 0RF benzonatate 200 mg capsule 200 mg PO TID PRN (Reason: cough) Qty: 30 1RF albuterol sulfate 90 mcg/actuation HFA aerosol inhaler 2 puff inhalation Q6H PRN (Reason: shortness of breath or wheezing) Qty: 8.5 2RF Referrals Follow up/Referrals: Hai House MD [Primary Care Provider] - See instructions Activity Restrictions/Add. Instructions Additional Instructions/Restrictions: Please discontinue the Macrobid (nitrofurantoin) and start taking the Bactrim (sulfamethoxazole trimethoprim). Please follow-up with your primary care provider. Please return to the emergency department if you develop any new or worsening symptoms or become concerned for your health. Clinical Impressions Clinical Impression: Acute UTI, Generalized muscle weakness, Hypomagnesemia Print Language Print Language: Sami Discharge ED Provider: Michael Philip General Adult HPI General Chief complaint: Weakness Stated complaint: weakness Time Seen by Provider: 12/10/23 01:53 History of Present Illness HPI narrative: 83-year-old female with history of COPD, type 2 diabetes, anemia, potential hyperlipidemia presents for generalized weakness. She reports that she saw her PCP earlier today and was diagnosed with a UTI and placed on antibiotic, though she does not know what it was. She reports that she has been having some dysuria and urinary frequency for the last few days. She denies any fevers chills abdominal pain chest pain shortness of breath nausea vomiting or any other symptoms. She reports that this evening she was getting ready for bed and she felt generally weak. No unilateral weakness, no slurred speech facial droop etc. Denies any other complaints at this time. Related Data Home Medications ?Medication ?Instructions ?Recorded ?Confirmed atorvastatin 20 mg tablet 20 mg PO DAILY Cholesterol 08/30/21 12/09/23 levothyroxine 88 mcg tablet 88 mcg PO DAILY hypothyroid 08/30/21 12/09/23 metformin 500 mg tablet 500 mg PO BID Diabetes 08/30/21 12/09/23 clopidogrel 75 mg tablet 75 mg PO DAILY 10/23/23 12/09/23 linaclotide 290 mcg capsule 290 mcg PO DAILY 10/23/23 12/09/23 (Linzess) metoprolol succinate 25 mg 25 mg PO DAILY 10/23/23 12/09/23 tablet,extended release 24 hr nystatin 100,000 unit/gram topical topical 10/23/23 12/09/23 cream pantoprazole 40 mg tablet,delayed mg PO 10/23/23 12/09/23 release triamcinolone acetonide 0.1 % applic topical 10/23/23 12/09/23 topical cream loratadine 10 mg tablet (Claritin) 10 mg PO DAILY PRN allergies 11/09/23 12/09/23 Previous Rx's ?Medication ?Instructions ?Recorded nystatin 100,000 unit/gram topical 1 applic topical TID PRN rash #30 10/23/23 cream grams triamcinolone acetonide 0.1 % 1 applic topical TID PRN rash #80 10/23/23 topical cream grams azithromycin 250 mg tablet 250 mg PO .COMPLEX #6 tabs 11/09/23 prednisone 10 mg tablet 10 mg PO BID #14 tabs 11/09/23 albuterol sulfate 90 mcg/actuation 2 puff inhalation Q6H PRN 11/16/23 aerosol inhaler shortness of breath or wheezing #8.5 grams benzonatate 200 mg capsule 200 mg PO TID PRN cough #30 caps 11/16/23 lubiprostone 24 mcg capsule 24 mcg PO DAILY #30 caps 12/09/23 (Amitiza) nitrofurantoin 100 mg PO BID #14 caps 12/09/23 monohydrate/macrocrystals 100 mg capsule (Macrobid) sulfamethoxazole 800 1 tab PO BID 7 days #14 tabs 12/10/23 mg-trimethoprim 160 mg tablet Allergies Allergy/AdvReac Type Severity Reaction Status Date / Time levofloxacin Allergy Verified 12/09/23 09:08 Penicillins Allergy Verified 12/09/23 09:08 [facility] Disclaimer: The information contained in this section may have been updated after the patient was seen, as this information can be updated by other users. Medical History (Updated 12/10/23 @ 05:10 by Michael Philip MD) Cataract (lens) fragments in eye following cataract surgery, bilateral Arthritis High cholesterol Hypothyroid Diabetes Hypertension Social History Smoking Status: Never smoker alcohol intake: never current occupational status: retired Travel in the last 8 weeks: None household members: spouse ROS Obtained: Yes All systems reviewed & no additional complaints except as documented Physical Exam General General appearance: alert and in no apparent distress Head Head exam: atraumatic and normocephalic Eye Eye exam: Present normal appearance, PERRL and EOMI ENT ENT exam: Present normal oropharynx and normal external ear exam Neck Neck exam: Present normal inspection and full ROM Chest Chest inspection: Present normal inspection and symmetric chest wall rise; Absent tenderness Respiratory Respiratory exam: Present normal lung sounds bilaterally; Absent respiratory distress Cardiovascular Cardiovascular exam: Present regular rate and normal rhythm Abdominal Exam Abdominal exam: Present soft; Absent distention, tenderness or guarding Extremities Exam Extremities exam: Present normal inspection; Absent edema or joint swelling Back Exam Back exam: Present normal inspection; Absent tenderness Neurological Exam Neurological exam: Present alert and oriented X3; Absent motor sensory deficit Psychiatric Psychiatric exam: Present normal affect and normal mood Skin Skin exam: Present warm, dry and normal color Lymphatic Lymphatic Findings: no adenopathy Medical Decision Making Medical Records Medical records reviewed: Yes I reviewed the patient's medical records. Jacky Inquiry Pt receiving controlled substance: No Jacky was queried for this patient: No Vital Signs: 12/10/23 01:47 12/10/23 01:54 12/10/23 02:00 Temperature 96 F L Temperature Source Oral Pulse Rate 124 H 124 H Pulse Rate [Right] 125 H Respiratory Rate 20 Blood Pressure 161/66 H 128/69 Blood Pressure [Right Arm] 161/66 H Blood Pressure Mean 83 77 Blood Pressure Mean [Right Arm] 97 Blood Pressure Source Blood Pressure Source [Right Arm] Automatic Cuff Blood Pressure Position Blood Pressure Position [Right Arm] Sitting 02 Sat by Pulse Oximetry 93 L 92 L 94 L Oxygen Delivery Method Room Air Room Air Room Air 12/10/23 02:30 12/10/23 03:00 12/10/23 03:30 Temperature Temperature Source Pulse Rate 115 H 111 H Pulse Rate [Right] Respiratory Rate 30 H 30 H Blood Pressure 130/63 130/67 134/61 Blood Pressure [Right Arm] Blood Pressure Mean 74 86 85 Blood Pressure Mean [Right Arm] Blood Pressure Source Blood Pressure Source [Right Arm] Blood Pressure Position Blood Pressure Position [Right Arm] 02 Sat by Pulse Oximetry 91 L 91 L 93 L Oxygen Delivery Method Room Air Room Air Room Air 12/10/23 03:46 12/10/23 04:00 12/10/23 04:30 Temperature Temperature Source Pulse Rate 111 H 111 H 109 H Pulse Rate [Right] Respiratory Rate 20 30 H 27 H Blood Pressure 134/61 144/67 H 140/68 Blood Pressure [Right Arm] Blood Pressure Mean 92 93 Blood Pressure Mean [Right Arm] Blood Pressure Source Automatic Cuff Blood Pressure Source [Right Arm] Blood Pressure Position Supine Blood Pressure Position [Right Arm] 02 Sat by Pulse Oximetry 91 L 93 L 93 L Oxygen Delivery Method Room Air Room Air Room Air Lab Data Lab results reviewed: Yes I reviewed the patient's lab results. Lab Results 12/10/23 02:12: WBC 16.7 H D, RBC 4.39, Hgb 11.3 L, Hct 35.6 L, MCV 81.1, MCH 25.8 L, MCHC 31.8, RDW 18.1 H, Plt Count 374, MPV 7.7, Neut % (Auto) 91.7 H, L ymph % (Auto) 4.6 L, Guthrie % (Auto) 3.1, Eos % (Auto) 0.5, Baso % (Auto) 0.2, N eut # (Auto) 15.3 H, Lymph # (Auto) 0.8, Guthrie # (Auto) 0.5, Eos # (Auto) 0.1, Baso # (Auto) 0.0, Total Counted 100, Neutrophils % (Manual) 89 H, Band Neutrophils % 1.0, Lymphocytes % (Manual) 7 L, Atypical Lymphs % 1.0, Monocytes % (Manual) 1 L, Eosinophils % (Manual) 1, RBC Morphology Normal, Polychromasia 1+, Anisocytosis 1+, Ovalocytes 1+, Sodium 140, Potassium 3.5, Chloride 108 H, Carbon Dioxide 24, Anion Gap 11.5, BUN 13, Creatinine 1.10 H, Estimated Creat Clear 52, Estimated GFR 47 L, Est GFR ( Amer) 57 L, Glucose 151 H D, Calcium 9.0, Magnesium 1.2 L, Total Bilirubin 0.4, AST 36, ALT 30, Alkaline Phosphatase 86, Total Protein 6.6, Albumin 3.6, Globulin 3.0, Albumin/Globulin Ratio 1.2 12/10/23 02:29: Urine Color Yellow, Urine Appearance Clear, Urine pH 6.0, Ur Specific [place] 1.015, Urine Protein Negative, Urine Glucose (UA) Negative, Urine Ketones Trace, Urine Blood Negative, Urine Nitrate Negative, Urine Bilirubin Negative, Urine Urobilinogen 0.2, Ur Leukocyte Esterase 1+ A, Urine RBC 3-5, Urine WBC 10-20, Ur Squamous Epith Cells 5-10, Amorphous Sediment 1+, Urine Bacteria 1+, Hyaline Casts 3-5, Fine Granular Casts 3-5 12/10/23 02:12 12/10/23 02:12 Orders (Tests/Meds): ED MEDICATIONS Discontinued Medications Generic Name Dose Route Start Last Admin Trade Name Babar PRN Reason Stop Dose Admin Magnesium Sulfate 2 gm in 50 mls @ 50 mls/hr 12/10/23 02:38 12/10/23 02:42 Magnesium Sulfate 2gm/50ml Premix IV 12/10/23 03:37 50 mls/hr ONCE ONE Administration Magnesium Sulfate 2 gm in 50 mls @ 50 mls/hr 12/10/23 02:40 12/10/23 02:42 Magnesium Sulfate 2gm/50ml Premix IV 12/10/23 03:39 50 mls/hr ONCE ONE Administration Ceftriaxone Sodium 1 gm/ 50 mls @ 100 mls/hr 12/10/23 03:24 12/10/23 03:41 Sodium Chloride IV 12/10/23 03:53 100 mls/hr ONCE ONE Administration Sodium Chloride 1,000 mls @ 999 mls/hr 12/10/23 03:30 12/10/23 03:40 Sod Chlor 0.9% 1000ml Bag IV 12/10/23 04:30 999 mls/hr .Q1H1M TORIBIO Administration ORDERS Category Date Time Status CBC w/Auto Diff [Complete Blood Count Auto Diff] Stat Lab 12/10/23 02:12 Completed CMP [Comprehensive Metabolic Panel] Stat Lab 12/10/23 02:12 Completed Magnesium Stat Lab 12/10/23 02:12 Completed UA [Urinalysis and Microscopic] Stat Lab 12/10/23 02:29 Completed Blood Culture Stat Micro 12/10/23 02:12 Received Urine Culture Stat Micro 12/10/23 02:29 Received Medical Decision Narrative: 3-year-old female with history as document above presents for few hours of generalized weakness, reportedly diagnosed with UTI at PCP earlier today.. History was obtained via interactive discussion with patient, family, EMS, chart review. On arrival, patient is [afebrile, hemodynamically stable, satting appropriately, alert, oriented x4, GCS 15], moving all extremities spontaneously. Full physical exam performed and significant for no focal weakness on exam, no lower extremity edema, clear lungs bilaterally, benign abdominal exam. Patient is tachycardic to 110, she reports this is normal for her. She reports her heart rate is always over 100. Differential includes but is not limited to UTI, bacteremia, electrolyte derangement, BREANA,. Patient was given 500 mL of fluid by EMS for symptomatic management and correction of underlying abnormalities. Workup initiated including CBC CMP mag urinalysis blood cultures. EKG chest x-ray troponin etc. were considered but deemed unnecessary given patient has clear lungs bilaterally, no chest pain at any time, no nausea epigastric pain or any other symptoms consistent with ACS PE etc. On re-evaluation, patient [remains afebrile, HD stable.] Laboratory workup independently interpreted by me and significant for white count of 16.7, hypomagnesemia at 1.2, no other concerning electrolyte derangement. Urinalysis consistent with infection.. Patient was given 1 L IV fluid bolus, 1 g ceftriaxone, 4 g IV magnesium. Admission for IV antibiotic therapy was considered given the patient's tachycardia and white count. However, the patient reports that the heart rate is normal for her. She is afebrile and otherwise well-appearing. Given patient history, exam and workup, patient's presentation most likely represents generalized weakness secondary to urinary tract infection and acute hypomagnesemia. These findings were communicated to patient. She was instructed to discontinue the Macrobid and begin taking Bactrim as prescribed. Discharged in stable condition and instructed to follow-up with PCP.. Procedures Risk/Benefits of Procedure(s) Were Explained: Yes Critical Care Critical Care Time Critical Care Time: No
[2023-12-10 02:20] LABS: Basophils % 0.2 % (0.1-2.0); Eosinophils # 0.1 K/mm3 (0.0-0.4); Eosinophils % 0.5 % (0.1-12.0); Hematocrit 35.6 % (37.0-47.0); Hemoglobin 11.3 g/dL (12.2-16.2); Lymphocytes # 0.8 K/mm3 (0.7-4.5); Lymphocytes % 4.6 % (10-50); Mean Corpuscular HGB Conc 31.8 g/dL (31.8-35.4); Mean Corpuscular Hemoglobin 25.8 pg (27.0-31.2); Mean Corpuscular Volume 81.1 fl (81-99); Mean Platelet Volume 7.7 fl (7.4-10.4); Monocytes # 0.5 K/mm3 (0.1-1.0); Monocytes % 3.1 % (1.7-9.3); Neutrophils # 15.3 K/mm3 (1.8-7.8); Neutrophils % 91.7 % (37.0-80.0); Platelet Count 374 K/mm3 (142-424); Red Blood Count 4.39 M/mm3 (4.20-5.40); Red Cell Distribution Width 18.1 % (11.5-17.5); White Blood Count 16.7 K/mm3 (4.8-10.8)
[2023-12-10 02:23] LABS: MANUAL DIFFERENTIAL MANUAL DIFFERENTIAL (MANUAL DIFF)
[2023-12-10 02:29] LABS: Chloride 108 mmol/L (98-107); Potassium 3.5 mmoL/L (3.5-5.1); Sodium 140 mmol/L (136-145)
[2023-12-10 02:31] LABS: Blood Urea Nitrogen 13 mg/dl (7-17)
[2023-12-10 02:31] LABS: Appearance,Urine CLEAR (Clear); Bilirubin,Urine Negative (Negative); Blood, Urine Negative (Negative); Color,Urine YELLOW (Yellow); Glucose,Urine (UA) Negative (Negative); Ketones,Urine TRACE (Negative); Leukocyte Esterase,Urine 1+ (Negative); Microscopic, Urine URINE MICROSCOPIC (MICROSCOPIC); Nitrate,Urine Negative (Negative); Protein,Urine Negative (Negative); Specific Gravity, Urine 1.015 (1.005-1.030); Urobilinogen,Urine 0.2 EU/dl (0.2)
[2023-12-10 02:32] LABS: Alanine Aminotransferase 30 U/L (12-78); Albumin Level 3.6 g/dl (3.5-5.0); Albumin/Globulin Ratio 1.2 (1.1-1.8); Alkaline Phosphatase 86 U/L (38-126); Aspartate Amino Transferase 36 U/L (14-36); Bilirubin,Total 0.4 mg/dl (0.2-1.3); Carbon Dioxide 24 mmol/L (22.0-30.0); Creatinine Clearance Estimated 52 mL/min (50-200); Estimated Glomerular Filt Rate 47 ml/min (>60); GFR (African American) 57 ML/MIN (>60); Glucose 151 mg/dl (74-100); Magnesium 1.2 mg/dl (1.6-2.3); Total Protein,Serum 6.6 g/dl (6.3-8.2)
[2023-12-10 02:42] LABS: Anion Gap 11.5 mEq/L (5-15)
[2023-12-10] MEDS: MAGNESIUM SULFATE IN WATER 2 GM/50 ML PIGGYBACK IV ×2 (02:42)
[2023-12-10 02:45] LABS: Amorphous Sediment,Urine 1+ /lpf; Bacteria,Urine 1+ /lpf
[2023-12-10 02:50] LABS: Eosinophils % 1 % (0-3); Lymphocytes % 7 % (10-50); Monocytes % 1 % (2-9); Neutrophils % 89 % (42-76); Total Cells Counted 100
[2023-12-10 02:51] LABS: Anisocytosis 1+; Ovalocytes 1+; Polychromasia 1+; RBC Morphology Normal
[2023-12-10] MEDS: 0.9 % SODIUM CHLORIDE 1000ML 1,000 ML 999 ML IV (03:40)
[2023-12-10] MEDS: CEFTRIAXONE 1 GM 1 GM in 0.9 % SODIUM CHLORIDE 50 ML IV (03:41)
--- NOTE | 2023-12-12 18:32 | PC.NURSE ---
URINE CULTURE DISCUSSED WITH DR HONG, RX CHANGED TO [facility], CALLED INTO [facility] PT NOTIFIED
--- NOTE | 2023-12-14 08:51 | PC.NURSE ---
SPOKE WITH PT AND KORI AT DR MAYBERRY' OFFICE, BOTH DON'T KNOW REACTION TO LEVAQUIN. PT REPORTS FEELING BETTER, DENIES FEVER OR CHILLS. DR HONG INSTRUCTED PT TO COMPLETE BACTRIM. FOLLOW-UP WITH DR MAYBERRY' OFFICE, PLAN WILL BE TO HAVE PT COMPLETE OUTPT IV ABX [facility]. ORDERS WILL BE SENT BY DR MAYBERRY, THIS NURSE WILL CALL PT AFTER ARRANGEMENTS ARE MADE.
--- NOTE | 2023-12-14 09:30 | PC.NURSE ---
OUT PT INFUSION ORDER SENT BY DR MAYBERRY. PT NOTIFIED AT THIS TIME THAT SEJAL FROM [facility] WILL CALL HER BACK WITH INSTRUCTIONS FOR INFUSION. PT V/U
== END 2023-12-10 05:30 | disposition home or self-care (01) ==
PROVIDERS: Emergency Provider Emergency Medicine; PCP Internal Medicine
DX: N39.0 Urinary tract infection, site not specified (principal); B96.5 Pseudomonas (aeruginosa) (mallei) (pseudomallei) as the cause of diseases classified elsewhere; E83.42 Hypomagnesemia; M62.81 Muscle weakness (generalized); E11.9 Type 2 diabetes mellitus without complications; E03.9 Hypothyroidism, unspecified; I10 Essential (primary) hypertension; Z79.84 Long term (current) use of oral hypoglycemic drugs
CPT/HCPCS: 80053; 81001; 83735; 85007; 85025; 85027; 87040; 87086; 87088; 87186; 96365; 99284; J0696; J3475

== ENCOUNTER 2023-12-16 20:01 | Emergency (ER) | payer MEDICARE, BC, SELFPAY ==
[2023-12-16 20:01] VITALS: BP 147/89; PULSE 109; RESP 20; TEMP 37; O2SAT 96; BMI 29.9
--- NOTE | 2023-12-16 21:57 | ED_ITS ---
<Statement entered by Purvi Evans DO - 12/17/23 00:21> I was consulted by the ROBIN, and we discussed the complexity of the problems being addressed. I approved the treatment and management plan for this patient's care in the emergency department, thus performing a substantive portion of the medical decision making. Purvi Evans DO Discharge Plan Disposition Patient Disposition: Home, Self-Care Condition: Good Prescriptions Prescriptions: No Action levothyroxine 88 mcg tablet 88 mcg PO DAILY Patient Comments: TAKE 1 TABLET BY MOUTH ONCE DAILY FOR THYROID metformin 500 mg tablet 500 mg PO BID Patient Comments: TAKE 1 TABLET BY MOUTH TWICE DAILY WITH MEALS atorvastatin 20 mg tablet 20 mg PO DAILY Patient Comments: TAKE 1 TABLET BY MOUTH EVERY DAY AT BEDTIME pantoprazole 40 mg tablet,delayed release (DR/EC) PO Patient Comments: TAKE 1 TABLET BY MOUTH ONCE DAILY metoprolol succinate 25 mg tablet extended release 24 hr 25 mg PO DAILY Patient Comments: TAKE 1 TABLET BY MOUTH ONCE DAILY AT BEDTIME clopidogrel 75 mg tablet 75 mg PO DAILY Patient Comments: TAKE 1 TABLET BY MOUTH ONCE DAILY nystatin 100,000 unit/gram cream topical Patient Comments: APPLY CREAM TOPICALLY THREE TIMES DAILY NEEDED TO RASH triamcinolone acetonide 0.1 % cream topical Patient Comments: APPLY TO SKIN RASH TOPICALLY 3 TIMES A DAY NEEDED Linzess 290 mcg capsule 290 mcg PO DAILY Patient Comments: TAKE 1 CAPSULE BY MOUTH ONCE DAILY FOR 10 DAYS nystatin 100,000 unit/gram cream 1 applic topical TID PRN (Reason: rash) Qty: 30 0RF triamcinolone acetonide 0.1 % cream 1 applic topical TID PRN (Reason: rash) Qty: 80 1RF loratadine [Claritin] 10 mg tablet 10 mg PO DAILY PRN (Reason: allergies) nitrofurantoin monohyd/m-cryst [Macrobid] 100 mg capsule 100 mg PO BID Qty: 14 0RF Rx Instructions: must administer with a meal/food lubiprostone [Amitiza] 24 mcg capsule 24 mcg PO DAILY Qty: 30 2RF azithromycin 250 mg tablet 250 mg PO .COMPLEX Qty: 6 0RF Rx Instructions: 250 mg orally; prednisone 10 mg tablet 10 mg PO BID Qty: 14 0RF benzonatate 200 mg capsule 200 mg PO TID PRN (Reason: cough) Qty: 30 1RF albuterol sulfate 90 mcg/actuation HFA aerosol inhaler 2 puff inhalation Q6H PRN (Reason: shortness of breath or wheezing) Qty: 8.5 2RF ferrous sulfate 325 mg (65 mg iron) tablet,delayed release (DR/EC) 325 mg PO DAILY Qty: 30 5RF Rx Instructions: Take with a large meal ciprofloxacin HCl 500 mg tablet 500 mg PO BID Qty: 60 3RF sulfamethoxazole-trimethoprim 800-160 mg tablet 1 tab PO BID 7 Days Qty: 14 0RF Referrals Follow up/Referrals: Hai House MD [Primary Care Provider] - See instructions Activity Restrictions/Add. Instructions Additional Instructions/Restrictions: Follow-up with your PCP for any worsening signs or symptoms. Continue taking the Cipro as scheduled. Return to the ER for any worsening signs or symptoms as needed. Clinical Impressions Clinical Impression: Pseudomonas urinary tract infection Instructions Patient Instructions: DI for Urinary Tract Infection (UTI) Print Language Print Language: [place]ian Discharge ED Provider: Purvi Evans General Adult HPI General Chief complaint: Urogenital-Female Stated complaint: poss UTI Time Seen by Provider: 12/16/23 21:57 History of Present Illness HPI narrative: Patient presents for evaluation of micturition. Patient reports that she has had increasing frequency of urge to go to the bathroom but very little output. Patient was recently diagnosed with a urinary tract infection and initially placed on Bactrim. However her urine culture grew out Pseudomonas and as patient has a reported allergy to Levaquin she was contacted to set up IV antibiotic infusion. Unfortunately the patient was confused by the rcumstances and felt better so she continued to take the Bactrim and declined to come to the hospital for IV antibiotic infusion. She saw her PCP in follow-up who actually read the urinary culture results and prescribed her Cipro which she filled but has not taken as she was continuing to take the Bactrim. However she notes that she has had continued increasing urination but no pain burning fever chills hemoptysis hematochezia melena nausea vomit diarrhea. Related Data Home Medications ?Medication ?Instructions ?Recorded ?Confirmed atorvastatin 20 mg tablet 20 mg PO DAILY Cholesterol 08/30/21 12/09/23 levothyroxine 88 mcg tablet 88 mcg PO DAILY hypothyroid 08/30/21 12/09/23 metformin 500 mg tablet 500 mg PO BID Diabetes 08/30/21 12/09/23 clopidogrel 75 mg tablet 75 mg PO DAILY 10/23/23 12/09/23 linaclotide 290 mcg capsule 290 mcg PO DAILY 10/23/23 12/09/23 (Linzess) metoprolol succinate 25 mg 25 mg PO DAILY 10/23/23 12/09/23 tablet,extended release 24 hr nystatin 100,000 unit/gram topical topical 10/23/23 12/09/23 cream pantoprazole 40 mg tablet,delayed mg PO 10/23/23 12/09/23 release triamcinolone acetonide 0.1 % applic topical 10/23/23 12/09/23 topical cream loratadine 10 mg tablet (Claritin) 10 mg PO DAILY PRN allergies 11/09/23 12/09/23 Previous Rx's ?Medication ?Instructions ?Recorded nystatin 100,000 unit/gram topical 1 applic topical TID PRN rash #30 10/23/23 cream grams triamcinolone acetonide 0.1 % 1 applic topical TID PRN rash #80 10/23/23 topical cream grams azithromycin 250 mg tablet 250 mg PO .COMPLEX #6 tabs 11/09/23 prednisone 10 mg tablet 10 mg PO BID #14 tabs 11/09/23 albuterol sulfate 90 mcg/actuation 2 puff inhalation Q6H PRN 11/16/23 aerosol inhaler shortness of breath or wheezing #8.5 grams benzonatate 200 mg capsule 200 mg PO TID PRN cough #30 caps 11/16/23 lubiprostone 24 mcg capsule 24 mcg PO DAILY #30 caps 12/09/23 (Amitiza) nitrofurantoin 100 mg PO BID #14 caps 12/09/23 monohydrate/macrocrystals 100 mg capsule (Macrobid) ferrous sulfate 325 mg (65 mg 325 mg PO DAILY #30 tabs 12/10/23 iron) tablet,delayed release sulfamethoxazole 800 1 tab PO BID 7 days #14 tabs 12/10/23 mg-trimethoprim 160 mg tablet ciprofloxacin HCl 500 mg tablet 500 mg PO BID #60 tabs 12/14/23 Allergies Allergy/AdvReac Type Severity Reaction Status Date / Time levofloxacin Allergy Verified 12/09/23 09:08 Penicillins Allergy Verified 12/09/23 09:08 nitrofurantoin AdvReac Gastrointestinal Verified 12/10/23 09:49 [From Macrobid] Upset [facility] Disclaimer: The information contained in this section may have been updated after the patient was seen, as this information can be updated by other users. Medical History (Updated 12/16/23 @ 22:59 by TAWANNA Cardenas) Cataract (lens) fragments in eye following cataract surgery, bilateral Arthritis High cholesterol Hypothyroid Diabetes Hypertension Social History Smoking Status: Never smoker alcohol intake: never current occupational status: retired Travel in the last 8 weeks: None household members: spouse ROS Obtained: Yes Systems reviewed as appropriate & no additional complaints except as documented Physical Exam General General appearance: alert and in no apparent distress Respiratory Respiratory exam: Present normal lung sounds bilaterally Cardiovascular Cardiovascular exam: Present regular rate and normal rhythm Abdominal Exam Abdominal exam: Present soft and normal bowel sounds; Absent tenderness Extremities Exam Extremities exam: Present normal inspection and full ROM Back Exam Back exam: Present normal inspection and full ROM; Absent CVA tenderness (R) or CVA tenderness (L) Neurological Exam Neurological exam: Present alert and oriented X3 Medical Decision Making Medical Records Medical records reviewed: Yes I reviewed the patient's medical records. Jacky Inquiry Pt receiving controlled substance: No Vital Signs: 12/16/23 20:01 12/16/23 22:56 Temperature 98.6 F 98.6 F Temperature Source Oral Oral Pulse Rate 104 H Pulse Rate [Right Radial] 109 H Respiratory Rate 20 18 Blood Pressure 125/80 Blood Pressure [Right Arm] 147/89 H Blood Pressure Mean [Right Arm] 108 Blood Pressure Source Automatic Cuff Blood Pressure Source [Right Arm] Automatic Cuff Blood Pressure Position Sitting Blood Pressure Position [Right Arm] Sitting 02 Sat by Pulse Oximetry 96 Oxygen Delivery Method Room Air Room Air Lab Data Lab results reviewed: Yes I reviewed the patient's lab results. Orders (Tests/Meds): ORDERS Category Date Time Status BMP [Basic Metabolic Panel] Stat Lab 12/16/23 22:03 Ordered CBC w/Auto Diff [Complete Blood Count Auto Diff] Stat Lab 12/16/23 22:03 Ordered Magnesium Stat Lab 12/16/23 22:03 Ordered Medical Decision Narrative: In summary patient is a 83-year-old female who presents to the emergency department for evaluation of frequent urination. Patient is hemodynamically stable upon arrival, afebrile. Physical exam is unremarkable and nonfocal including no CVA tenderness bilaterally to percussion no abdominal tenderness normal bowel sounds. Differential diagnosis includes bladder outlet obstruction versus bladder spasm versus ongoing UTI and adequately treated etc. Initial workup was considered but deferred after bladder scan showed 150 cc of urine in her bladder but would have included repeat UA and hematologic lab. Initial interventions were deferred but would have included crystalloid bolus Toradol Tylenol. Given that patient brought her Cipro prescription with her prescribed by her PCP we gave her first dose here while under observation to observe for tolerance or side effects. Patient had none after an hour and was tolerating oral intake and still asymptomatic from a urinary standpoint. Given this patient was appropriate for discharge with strict return precautions and instructions to follow-up with PCP for any worsening signs or symptoms or return to the emergency department as needed. Critical Care Critical Care Time Critical Care Time: No
--- NOTE | 2023-12-16 22:55 | PC.NURSE ---
bladder scan shows 195 ml. D Mela STACY notified.
--- NOTE | 2023-12-16 22:55 | PC.NURSE ---
per Patria STACY, we do not need to draw labs at this time
[2023-12-16 22:56] VITALS: BP 125/80; PULSE 104; RESP 18; TEMP 37; O2SAT 94
== END 2023-12-16 23:11 | disposition home or self-care (01) ==
PROVIDERS: Emergency Provider Emergency Medicine; PCP Internal Medicine
DX: N39.0 Urinary tract infection, site not specified (principal); B96.5 Pseudomonas (aeruginosa) (mallei) (pseudomallei) as the cause of diseases classified elsewhere
CPT/HCPCS: 99282

== ENCOUNTER 2024-06-07 13:18 | Outpatient (CLI) | payer MEDICARE, BC, SELFPAY ==
[2024-06-07 12:27] LABS: Basophils # 0.1 K/mm3 (0-0.2); Basophils % 0.6 % (0.1-2.0); Eosinophils # 0.3 K/mm3 (0.0-0.4); Eosinophils % 3.1 % (0.1-12.0); Hematocrit 40.8 % (37.0-47.0); Lymphocytes # 2.9 K/mm3 (0.7-4.5); Lymphocytes % 26.7 % (10-50); Mean Corpuscular HGB Conc 31.9 g/dL (31.8-35.4); Mean Corpuscular Hemoglobin 27.5 pg (27.0-31.2); Mean Corpuscular Volume 86.4 fl (81-99); Mean Platelet Volume 9.9 fl (7.4-10.4); Monocytes % 9.3 % (1.7-9.3); Neutrophils # 6.5 K/mm3 (1.8-7.8); Neutrophils % 60.1 % (37.0-80.0); Platelet Count 339 K/mm3 (142-424); Red Blood Count 4.72 M/mm3 (4.20-5.40); Red Cell Distribution Width 17.1 % (11.5-17.5); White Blood Count 10.9 K/mm3 (4.8-10.8)
[2024-06-07 12:48] LABS: Chloride 101 mmol/L (98-107)
[2024-06-07 12:49] LABS: Albumin Level 4.2 g/dl (3.5-5.0); Potassium 4.7 mmoL/L (3.5-5.1); Sodium 136 mmol/L (136-145)
[2024-06-07 12:51] LABS: Blood Urea Nitrogen 16 mg/dl (7-17); Estimated Glomerular Filt Rate 53 ml/min (>60); GFR (African American) 64 ML/MIN (>60)
[2024-06-07 12:52] LABS: Alanine Aminotransferase 24 U/L (12-78); Albumin/Globulin Ratio 1.7 (1.1-1.8); Alkaline Phosphatase 89 U/L (38-126); Anion Gap 12.7 mEq/L (5-15); Aspartate Amino Transferase 34 U/L (14-36); Bilirubin,Total 0.6 mg/dl (0.2-1.3); Calcium 9.3 mg/dl (8.4-10.2); Carbon Dioxide 27 mmol/L (22.0-30.0); Chol/HDL Ratio 1.7 (1-3.5); Cholesterol 105 mg/dl (140-200); Globulin 2.5 g/dL (1.3-3.2); Glucose 104 mg/dl (74-100); HDL Cholesterol 61 mg/dl (40-60); Total Protein,Serum 6.7 g/dl (6.3-8.2); Triglycerides 108 mg/dl (30-150); VLDL Cholesterol 22 mg/dL (0-40)
[2024-06-07 13:04] LABS: Creatinine,Urine Random 46 mg/dL (Not Estab.); Direct LDL Cholesterol < 30.00 mg/dL (100-129); Microalbumin < 6.000 mg/L (0-16.7)
[2024-06-07 13:21] LABS: Thyroid Stimulating Hormone 3.17 uIU/mL (0.465-4.68)
[2024-06-07 13:38] LABS: Hemoglobin A1C 6.7 % (4.0-6.0)
[2024-06-07 14:26] LABS: Vitamin B12 793 pg/mL (239-931)
== END 2024-06-07 23:59 | disposition home or self-care (01) ==
LOC: LAB.DROPOF 13:19
PROVIDERS: PCP Internal Medicine; Visit Provider Internal Medicine
DX: E78.5 Hyperlipidemia, unspecified (principal); E11.42 Type 2 diabetes mellitus with diabetic polyneuropathy; E11.59 Type 2 diabetes mellitus with other circulatory complications; E03.9 Hypothyroidism, unspecified; R53.83 Other fatigue; D64.9 Anemia, unspecified; I10 Essential (primary) hypertension
CPT/HCPCS: 80053; 80061; 82043; 82570; 82607; 83036; 84443; 85025

== ENCOUNTER 2024-08-30 13:54 | Outpatient (CLI) | payer MEDICARE, BC, SELFPAY ==
--- NOTE | 2024-08-30 13:58 | XR_ITS ---
FINAL REPORT CLINICAL HISTORY: Fall 3 days ago FINDINGS: A single view of the pelvis was obtained. There is no acute fracture or dislocation. Patient is status post right hip arthroplasty. Hardware is incompletely imaged but the visualized portions are intact. 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 IMPRESSION: Degenerative and postsurgical changes. Reviewed, Interpreted and Dictated by Cassie Avila MD Transcribed by Alina Quan Authenticated and [facility]
--- NOTE | 2024-08-30 13:58 | XR_ITS ---
FINAL REPORT CLINICAL HISTORY: Fall 3 days ago, tailbone area pain, just coccyx FINDINGS: AP and lateral views of the sacrum and coccyx were obtained. There is no prior exam for comparison. There is no acute fracture or other acute osseous abnormality. 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 No acute soft tissue abnormality is present. IMPRESSION: SI joint degenerative disease bilaterally. Reviewed, Interpreted and Dictated by Cassie Avila MD Transcribed by Alina Quan Authenticated and [facility]
== END 2024-08-30 23:59 | disposition home or self-care (01) ==
LOC: RAD 13:56
PROVIDERS: PCP Internal Medicine; Visit Provider Internal Medicine
DX: M53.3 Sacrococcygeal disorders, not elsewhere classified (principal); M79.18 Myalgia, other site
CPT/HCPCS: 72170; 72220

== ENCOUNTER 2024-09-26 14:17 | Outpatient (CLI) | payer MEDICARE, BC, SELFPAY ==
--- OUTSIDE RECORDS SUMMARY | 2024-09-26 14:20 | XMS_ITS | Data Portability ---
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 Plan of Treatment Reminders Order Date Submit Date Provider Last Modified By Organization Details Last Modified Time Details Appointments None recorded. Lab urinalysis panel, auto [address] [facility], [address], [place], [address], 3 21:26:56 urinalysis panel, auto [address] [facility], [address], [place], [address], 3 23:08:22 urinalysis panel, auto [address] [facility], [address], [place], [address], 2 11:07:56 Referral None recorded. Procedures None recorded. Surgeries None recorded. Imaging None recorded. Medication Orders None recorded. Patient TargetsNo targets recorded. Patient Instructions Encounter Date Encounter Id Patient Instructions Last Modified By Organization Details Last Modified Time 05/07/2022 [id number] 1. Laryngoscopy performed. Full risks, complications, and benefits of non-operative intervention have been thoroughly discussed. Understanding was expressed, informed consent given, and we will proceed with the discussed treatment plan. There were no questions for me at the end of the office visit. 2. 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 Results Created Date Observation Date Name Description Value Unit Range Abnormal Flag Note LastModifiedBy Organization Detail LastModifiedTime 04/28/2004/28/2022 urina lysis panel , auto Unknown Analyte Clean Catch Not Available [facility] [address], [address], 04/28/2022 10:39:30 04/28/20 22 04/28/2022 urina lysis panel , auto Unknown Analyte Yellow Not Available [facility] [address], [place], [address], 04/28/2022 10:39:30 04/28/20 22 04/28/2022 urina lysis panel , auto Unknown Analyte Clear Not Available [facility] [address], [place], [address], 04/28/2022 10:39:30 04/28/20 22 04/28/2022 urina lysis panel , auto Unknown Analyte 1.005 Not Available [facility] [address], [place], [address], 04/28/2022 10:39:30 04/28/20 22 04/28/2022 urina lysis panel , auto Unknown Analyte 5.0 Not Available [facility] [address], [place], [address], 04/28/2022 10:39:30 04/28/20 22 04/28/2022 urina lysis panel , auto Unknown Analyte Negati ve Not Available [facility] [address], [place], [address], 04/28/2022 10:39:30 04/28/20 22 04/28/2022 urina lysis panel , auto Unknown Analyte Negati ve Not Available [facility] [address], [place], [address], 04/28/2022 10:39:30 04/28/20 22 04/28/2022 urina lysis panel , auto Unknown Analyte Negati ve Not Available [facility] [address], [place], [address], 04/28/2022 10:39:30 04/28/20 22 04/28/2022 urina lysis panel , auto Unknown Analyte Normal Not Available [facility] [address], [place], [address], 04/28/2022 10:39:30 04/28/20 22 04/28/2022 urina lysis panel , auto Unknown Analyte Negati ve Not Available [facility] [address], [place], [address], 04/28/2022 10:39:30 04/28/20 22 04/28/2022 urina lysis panel , auto Unknown Analyte Normal Not Available [facility] [address], [place], [address], 04/28/2022 10:39:30 04/28/20 22 04/28/2022 urina lysis panel , auto Unknown Analyte Negati ve Not Available [facility] [address], [place], [address], 04/28/2022 10:39:30 04/28/20 22 04/28/2022 urina lysis panel , auto Unknown Analyte Negati ve Not Available [facility] [address], [place], [address], 04/28/2022 10:39:30 05/30/19 23 05/30/2022 urina lysis panel , auto Unknown Analyte Clean Catch Not Available [facility] [address], [place], [address], 05/30/2022 12:40:11 05/30/19 23 05/30/2022 urina lysis panel , auto Unknown Analyte Yellow Not Available [facility] [address], [place], [address], 05/30/2022 12:40:11 05/30/1905/30/2022 urina lysis panel , auto Unknown Analyte Clear Not Available [facility] [address], [place], [address], 05/30/2022 12:40:05/30/1905/30/2022 urina lysis panel , auto Unknown Analyte 1.010 Not Available [facility] [address], [place], [address], 05/30/2022 12:40:11 05/30/19 23 05/30/2022 urina lysis panel , auto Unknown Analyte 1.003- 1.035 Not Available [facility] [address], [place], [address], 05/30/2022 12:40:05/30/1905/30/2022 urina lysis panel , auto Unknown Analyte 5.0 Not Available [facility] [address], [place], [address], 05/30/2022 12:40:05/30/1905/30/2022 urina lysis panel , auto Unknown Analyte 5.0-8. 0 Not Available [facility] [address], [place], [address], 05/30/2022 12:40:05/30/19 23 05/30/2022 urina lysis panel , auto Unknown Analyte Negati ve Not Available [facility] [address], [place], [address], 05/30/2022 12:40:05/30/1905/30/2022 urina lysis panel , auto Unknown Analyte Negati ve Not Available [facility] [address], [place], [address], 05/30/2022 12:40:05/30/1905/30/2022 urina lysis panel , auto Unknown Analyte Negati ve Not Available [facility] [address], [place], [address], 05/30/2022 12:40:11 05/30/19 23 05/30/2022 urina lysis panel , auto Unknown Analyte Negati ve Not Available [facility] [address], [place], [address], 05/30/2022 12:40:05/30/1905/30/2022 urina lysis panel , auto Unknown Analyte Negati ve Not Available [facility] [address], [place], [address], 05/30/2022 12:40:05/30/1905/30/2022 urina lysis panel , auto Unknown Analyte Negati ve Not Available [facility] [address], [place], [address], 05/30/2022 12:40:05/30/19 23 05/30/2022 urina lysis panel , auto Unknown Analyte 100 mg/dl Not Available [facility] [address], [place], [address], 05/30/2022 12:40:05/30/1905/30/2022 urina lysis panel , auto Unknown Analyte Normal Not Available [facility] [address], [place], [address], 05/30/2022 12:40:05/30/1905/30/2022 urina lysis panel , auto Unknown Analyte Negati ve Not Available [facility] [address], [place], [address], 05/30/2022 12:40:11 05/30/19 23 05/30/2022 urina lysis panel , auto Unknown Analyte Negati ve Not Available [facility] [address], [place], [address], 05/30/2022 12:40:05/30/1905/30/2022 urina lysis panel , auto Unknown Analyte Normal Not Available [facility] [address], [place], [address], 05/30/2022 12:40:05/30/1905/30/2022 urina lysis panel , auto Unknown Analyte Normal 1 mg/dl Not Available [facility] [address], [place], [address], 05/30/2022 12:40:05/30/19 23 05/30/2022 urina lysis panel , auto Unknown Analyte Negati ve Not Available [facility] [address], [place], [address], 05/30/2022 12:40:05/30/1905/30/2022 urina lysis panel , auto Unknown Analyte Negati ve Not Available [facility] [address], [place], [address], 05/30/2022 12:40:05/30/1905/30/2022 urina lysis panel , auto Unknown Analyte Negati ve Not Available [facility] [address], [place], [address], 05/30/2022 12:40:11 05/30/19 23 05/30/2022 urina lysis panel , auto Unknown Analyte Negati ve Not Available [facility] [address], [place], [address], 05/30/2022 12:40:11 07/29/1907/28/2022 urina lysis panel , auto Unknown Analyte Clean Catch Not Available [facility] [address], [place], [address], 07/28/2022 13:46:02 07/29/19 23 07/28/2022 urina lysis panel , auto Unknown Analyte Yellow Not Available [facility] [address], [place], [address], 07/28/2022 13:46:02 07/29/19 23 07/28/2022 urina lysis panel , auto Unknown Analyte Clear Not Available [facility] [address], [place], [address], 07/28/2022 13:46:02 07/29/19 23 07/28/2022 urina lysis panel , auto Unknown Analyte 1.015 Not Available [facility] [address], [place], [address], 07/28/2022 13:46:02 07/29/19 23 07/28/2022 urina lysis panel , auto Unknown Analyte 1.003- 1.035 Not Available [facility] [address], [place], [address], 07/28/2022 13:46:02 07/29/19 23 07/28/2022 urina lysis panel , auto Unknown Analyte 5.0 Not Available [facility] [address], [place], [address], 07/28/2022 13:46:02 07/29/19 23 07/28/2022 urina lysis panel , auto Unknown Analyte 5.0-8. 0 Not Available [facility] [address], [place], [address], 07/28/2022 13:46:02 07/29/19 23 07/28/2022 urina lysis panel , auto Unknown Analyte Negati ve Not Available [facility] [address], [place], [address], 07/28/2022 13:46:02 07/29/19 23 07/28/2022 urina lysis panel , auto Unknown Analyte Negati ve Not Available [facility] [address], [place], [address], 07/28/2022 13:46:02 07/29/19 23 07/28/2022 urina lysis panel , auto Unknown Analyte Negati ve Not Available [facility] [address], [place], [address], 07/28/2022 13:46:02 07/29/19 23 07/28/2022 urina lysis panel , auto Unknown Analyte Negati ve Not Available [facility] [address], [place], [address], 07/28/2022 13:46:02 07/29/19 23 07/28/2022 urina lysis panel , auto Unknown Analyte Negati ve Not Available [facility] [address], [place], [address], 07/28/2022 13:46:02 07/29/19 23 07/28/2022 urina lysis panel , auto Unknown Analyte Negati ve Not Available [facility] [address], [place], [address], 07/28/2022 13:46:02 07/29/19 23 07/28/2022 urina lysis panel , auto Unknown Analyte Normal Not Available [facility] [address], [place], [address], 07/28/2022 13:46:02 07/29/1907/28/2022 urina lysis panel , auto Unknown Analyte Normal Not Available [facility] [address], [place], [address], 07/28/2022 13:46:02 07/29/1907/28/2022 urina lysis panel , auto Unknown Analyte Negati ve Not Available [facility] [address], [place], [address], 07/28/2022 13:46:02 07/29/19 23 07/28/2022 urina lysis panel , auto Unknown Analyte Negati ve Not Available [facility] [address], [place], [address], 07/28/2022 13:46:02 07/29/1907/28/2022 urina lysis panel , auto Unknown Analyte Normal Not Available [facility] [address], [place], [address], 07/28/2022 13:46:02 07/29/1907/28/2022 urina lysis panel , auto Unknown Analyte Normal 1 mg/dl Not Available [facility] [address], [place], [address], 07/28/2022 13:46:02 07/29/19 23 07/28/2022 urina lysis panel , auto Unknown Analyte Negati ve Not Available [facility] [address], [place], [address], 07/28/2022 13:46:02 07/29/19 23 07/28/2022 urina lysis panel , auto Unknown Analyte Negati ve Not Available [facility] [address], [place], [address], 07/28/2022 13:46:02 07/29/1907/28/2022 urina lysis panel , auto Unknown Analyte Negati ve Not Available [facility] [address], [place], [address], 07/28/2022 13:46:02 07/29/19 23 07/28/2022 urina lysis panel , auto Unknown Analyte Negati ve Not Available [facility] [address], [place], [address], 07/28/2022 13:46:02 Result Notes None recorded. Problems No Known Problems Procedures Surgical History Date Name Laterality Status Provider Name and Address Organization Details Recorded Time 05/07/20 Laryngoscopy Flex completed Luh Springeron [facility] 05/07/2022 11:32:48 04/28/20 Post Void Residual; Ultrasound completed Jami Madrigal [facility] 04/28/2022 10:39:22 section completed [facility] 04/21/2022 12:51:07 Cholecystectomy completed [facility] 04/21/2022 12:51:12 Imaging Results None recorded. Procedure Notes None recorded. Medical Equipment None Reported. Allergies Allergen ID Allergen Name Allergen Category Reaction Reaction Severity Criticality Documentation Date Start Date Code Code System Note Provider Name and Address Organization Details Recorded Time 245982 Product containin g penicilli n (product) medicatio n Not available Not available Not available 04/21/2022 66103 8001 SNOMED [facility] 2 12:45:43 593495 levothyro xine sodium medicatio n Not available Not available Not available 04/21/2022 44225 RxNorm [facility] 2 12:45:57 Medications Name Sig Start Date Stop Date Status Note LastModified by Organization Details LastModified Time Miralax 17 gram oral powder packet Take by oral route. active Not Available Not Available No t Available metformin 500 mg tablet Take 1 tablet twice a day by oral route. active Not Available Not Available No t Available Colace 100 mg capsule Take 1 capsule every day by oral route. active Not Available Not Available No t Available atorvastatin 20 mg tablet Take 1 tablet every day by oral route. active Not Available Not Available No t Available clarithromycin 500 mg tablet Take 1 tablet every 12 hours by oral route. active Not Available Not Available No t Available metronidazole 500 mg tablet Take 1 tablet every 8 hours by oral route. active Not Available Not Available No t Available clopidogrel 75 mg tablet Take 1 tablet every day by oral route. active Not Available Not Available No t Available temazepam 15 mg capsule Take 1 capsule every day by oral route. active Not Available Not Available No t Available tamsulosin 0.4 mg capsule Take 1 capsule every day by oral route. active Not Available Not Available No t Available bethanechol chloride 50 mg tablet Take 1 tablet 4 times a day by oral route. active Not Available Not Available No t Available lansoprazole 30 mg delayed release,disinte grating tablet Take 1 tablet every day by oral route. active Not Available Not Available No t Available Shreyas Chewable Low Dose Aspirin 81 mg tablet Chew 1 tablet every day by oral route. active Not Available Not Available No t Available Linzess 290 mcg capsule Take 1 capsule every day by oral route. active Not Available Not Available No t Available metoprolol succinate ER 25 mg capsule sprinkle, ext. release 24 hr Take 1 capsule every day by oral route. active Not Available Not Available No t Available Vitals Date Recorded Body height Body mass index (BMI) Body weight Provider Name and Address Organization Details Last Updated DateTime 04/21/2022 165.1 cm 24.1 kg/m2 75372.89 g Angelina Ahuja [facility] 04/21/2022 12:45:30 Date Recorded Body height Body mass index (BMI) Body weight Provider Name and Address Organization Details Last Updated DateTime 04/28/2022 165.1 cm 25 kg/m2 48075.86 g Jami Madrigal [facility] 04/28/2022 10:39:13 Date Recorded Body height Body mass index (BMI) Body weight Body temperature Oxygen saturation Oxygen saturation in Arterial blood by Pulse oximetry Heart rate Systolic blood pressure Diastolic blood pressure Provider Name and Address Organization Details Last Updated DateTime 2 165.1 cm 27.5 kg/m2 46302.7 4 g 97.5 [degF] 96 % 96 % 101 /min 142 mm[Hg] 84 mm[Hg] Yuliet Jackson [facility] 2 11:10:42 Date Recorded Body height Body mass index (BMI) Body weight Provider Name and Address Organization Details Last Updated DateTime 07/28/2022 165.1 cm 27.5 kg/m2 42625.74 g Casandra Ewing [facility] 07/28/2022 13:45:31 Social History Question Answer Notes LastModified by Organizat ion Details LastModified Time Tobacco Smoking Status Former Smoker Angelina Ahuja [facility] 04/21/2022 12:50:53 What Is Your Relationship Status? Information not available 04/21/2022 Sex: Unknown Functional Status Question Answer Note LastModified by Organization D etails LastModified Time What is your level of alcohol consumption? None Information not available 04/21/2022 Mental Status None recorded. Family History Relationship Description Onset Age of this Age Resolved Age Notes LastModified by Organization Details LastModified Time Unspecified Relation Diabetes mellitus [email or web address] Not available 2021 12:50:33 Unspecified Relation Family history of malignant neoplasm [email or web address] Not available 2021 12:50:37 Medical History Condition Response Diabetes Y Allergies/Hayfever Y Bleeding Disorder N Arthritis Y Anesthesia Complications N Ulcers Y Cancer N Hypertension Y Stroke Y Gynecological HistoryNo gynecological history recorded. 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 She will have the visiting nurse remove the catheter and follow up with me in 1-2 weeks With bladder scan postvoid residual [id number] MD ERNESTINA GUTIERREZ [facility] [address] [place] [address] 04/28/2022 10:26:11 04/28/2022 11:07:53 Retention of urine 889313566 R33.9 Follow-up 1 month with bladder scan postvoid residual. She will continue with tamsulosin for now [id number] MD ERNESTINA GUTIERREZ [facility] [address] [place] [address] 05/30/2022 09:40:53 05/30/2022 10:12:44 Retention of urine 518123072 R33.9 Follow-up 2 month with bladder scan postvoid residual. [id number] MD ERNESTINA GUTIERREZ [facility] [address] [place] [address] 07/28/2022 11:12:57 07/28/2022 11:56:04 Retention of urine 114543705 R33.9 Resolved. She will follow-up in 6 months earlier if necessary Health Concerns Section Related Observation LastModified by Organization Detai ls LastModified Time None Recorded Concern Status LastModified by Organization Details LastModified Time None Recorded Advance Directives Directive None Recorded Payers Insurance Date Sequence Insurance Name Policy Number Policy [place] Covered Member ID [place] Member ID Guarantor Name 09/09/2022 2 [place] [id number] Malka L Shakira [id number] Malka L Shakira 05/30/2022 2 [place] [id number] Malka L Shakira [id number] Malka L Shakira 09/09/2022 1 [place] Malka L Shakira [id number] Malka L Shakira Notes Date Note Type Note Provider Name and Address Organization Details Recorded Time 04/21/2022 text/html Patient is here for initial visit regarding urinary retention. He is been unable to void following carotid endarterectomy. Prior to that she had a stroke. Her surgeries near the end of February. Sensipar that time she had no known issues. She has multiple chronic conditions including diabetes and peripheral vascular disease she is taking bethanechol 50 mg 3 times per day as well as tamsulosin she has failed several voiding trials. She is stronger than she was a month ago. We discussed a voiding trial. We discussed having the visiting nurse replace her catheter if necessary. LORIE MERINO [facility] [place], [phone], [facility] 04/27/2022 16:18:57 04/28/2022 text/html Patient is here for 1 week follow-up after catheter removal for urinary retention following carotid endarterectomy and stroke. Her bladder scan residual was 24 mL. Her urine specimen was unremarkable. She feels she empties well. She is having no incontinence. She still is taking Flomax and bethanechol 3 times per day. We discussed weaning her bethanechol gradually over the next 2 weeks. She will follow-up in 1 month. LORIE MERINO [facility] [place], [phone], [facility] 04/28/2022 11:08:32 05/07/2022 text/html Malka is a 82 year old female comes in today for consultation at the request of Dr. Hai House for an evaluation of hoarseness following carotid surgery back on March 12. She was aware her voice may become hoarse after her procedure, and she has been evaluated by speech therapy. Her speech therapist felt as though she should have an ENT evaluation. She does not complain of a choking sensation, and is eating a normal diet. MICHELLE JONES MD [address] [place] [address], [phone], [facility] 05/07/2022 11:51:12 05/30/2022 text/html Patient is here in follow-up of previous urinary retention following carotid endarterectomy and stroke. She is weaned her bethanechol down to once per day and continues to take tamsulosin. She continues to void well. She has nocturia 2-3 times per night. She has no urgency incontinence. Her urine today is crystal clear. I suggest she completely discontinue the bethanechol and if she continues to do well after 2 weeks stop tamsulosin. LORIE MERINO MD [facility] [place], [phone], [facility] 06/02/2022 23:09:08 07/28/2022 text/html Patient is here in follow-up of previous urinary retention after carotid artery surgery. She has weaned off of bethanechol completely. She is still on tamsulosin. Her urine today is unremarkable. She typically sleeps through the night. She feels she empties well. She has upcoming hip surgery and I suggest she continue with the tamsulosin. LORIE MERINO MD [facility] [place], [phone], [facility] 07/29/2022 21:27:24 OBGyn Episode No OBEpisode recorded.
--- NOTE | 2024-09-26 14:21 | XR_ITS ---
FINAL REPORT TECHNIQUE: Lumbar spine 3 views CLINICAL HISTORY: status post fall 4 weeks ago...rt buttock pain COMPARISON: 09/19/2020 FINDINGS: LUMBAR SPINE: AP and lateral views of the lumbar spine were obtained. Lumbar scoliosis is present convex to the left, measuring 20 degrees. There is no acute fracture. Vertebral body height is preserved. There are advanced degenerative changes throughout the lumbar discs. Prominent anterior osteophytes are noted from the L1 level through the L4-5 level. No acute paraspinal abnormality. IMPRESSION: Degenerative change as described, without acute bony abnormality identified. Reviewed, Interpreted and Dictated by Robbi Linder MD Transcribed by Shaina Sood Authenticated and . [facility]
== END 2024-09-26 23:59 | disposition home or self-care (01) ==
LOC: RAD 14:18
PROVIDERS: PCP Internal Medicine; Visit Provider Internal Medicine
DX: M51.369 Other intervertebral disc degeneration, lumbar region without mention of lumbar back pain or lower extremity pain (principal); M47.816 Spondylosis without myelopathy or radiculopathy, lumbar region; M41.9 Scoliosis, unspecified; M25.78 Osteophyte, vertebrae; S30.0XXA Contusion of lower back and pelvis, initial encounter; W19.XXXA Unspecified fall, initial encounter
CPT/HCPCS: 72100

== ENCOUNTER 2024-11-10 15:00 | Outpatient (RCR) | payer MEDICARE, BC, SELFPAY ==
--- NOTE | 2024-10-31 16:28 | HMH.PTOPEV ---
PT Outpatient Evaluation Rehab PT Outpatient Evaluation Start: 10/31/24 13:00 Freq: Status: Active Protocol: Document 10/31/24 13:00 GRACE (Rec: 10/31/24 13:58 GRACE [id number]) E-signed By Yuliet Parra, PT Outpatient Therapy Subjective History Subjective History This is an initial PT evaluation for 84 y/o female, Malka Rosenberg, who presents with PT referral for contusion of lower back and pelvis...tailbone and right buttock pain post fall . Pt reports she had a fall in early August. Pt's lumbar, pelvis, and coccyx x-ray was clear from fracture and showed degenerative changes. Pt reports her tailbone feels fine and she does not have issues with her tailbone. Pt reports she is here for DDD in her low back. Pt denies any pain from her fall now and no tailbone or hip pain. Pt reports her back has been bothering her for several years (close to a decade). Pt has had PT in the past for her back. Pt denies any radicular symptoms. Pt's LBP is central without radiating. Pt has not had any prior surgeries or injections. Pt uses a generic back brace, heat, massage, and prescription medication to relieve her LBP . PMH: DDD, diabetic New diagnosis of No cancer in past 12 months? Chief Complaint Pain Symptom Type Ache Symptoms Relieved By OTC Meds,Prescription Meds Symptoms Aggravated Physical Activity,Twisting,Walking By Prior Functional None Limitations Current Functional Reaching,Lifting,Housework,Dressing,Desk Work/Reading, Limitations Driving,Sleeping,Standing,Sitting,Squatting,Recreation Activity,Walking,Stairs,Balance,Bending/Stooping Symptom Description Constant and Continuous Level of pain today 8 (0-10) Pain scale - at its 8 best (0-10) Pain scale - at its 8 worst (0-10) Lumbopelvic Eval Posture Thoracic Spine Neutral Posture Standing Position Lumbar Spine Posture Neutral Standing Position Assistive device Assistive Devices None / NA Gait Observation General Gait Pattern Antalgic Gait Observation Palapation tenderness right thoracic spinal No tenderness lumbar spinal Yes: 1/4 tenderness paraspinal Yes: 1/4 tenderness buttock tenderness Yes: 1/4 Lumbar/Sacral Muscle Guarding Palpation Findings Range of Motion Lumbar Spine Active 75% Flexion Range of Motion (degrees) Lumbar Spine Active 0% Extension Range of Motion (degrees) Left Lumbar Spine 50% Lateral Flexion Active Range of Motion (degrees) Right Lumbar Spine 50% Lateral Flexion Active Range of Motion (degrees) Lumbar Spine ROM Soft Tissue Tightness,Pain Limitations Manual Muscle Test Bilateral Knee Extension 4 Good Strength Grade Knee Flexion 4 Good Strength Grade Hip Flexion Strength 4 Good Grade Hip Abduction 4 Good Strength Grade Hip Adduction 4 Good Strength Grade Special Tests Sciatic Nerve Negative Left,Negative Right Tension Test Unilateral Straight Positive Left,Positive Right Leg Raise (Lasegue) Test Bilateral Straight Positive Leg Raise Test Crossed Straight Leg Positive Left,Positive Right Raise Test Sacroiliac Joint Negative Left,Negative Right Compression Test Sacroiliac Joint Negative Left,Negative Right Distraction Test Oswestry Index Section 1 Pain Intensity The pain is severe and does not vary much Section 2 Personal Care ( change my way of washing or dressing in order to avoid Washing,Dresing) pain Section 3 Lifting Pain prevents me from lifting weights off the floor Section 4 Walking I cannot walk at all without increasing pain Section 5 Sitting I can sit in my favorite chair for as long as I like Section 6 Standing I cannot stand more than 10 minutes without increasing pain Section 7 Sleeping I get pain in bed, but it does not prevent me from sleeping well Section 8 Social Life Pain has restricted my social life and I do not go out often Section 9 Traveling I get some pain when traveling, but none of my usual forms of travel m Section 10 Changing Degreee of My pain is neither getting better or worse Pain Score and Risk Level Oswestry Sc 25 Oswestry Risk Level Severe Disability Miscellaneous Dx PT Eval Objective Objective Cluster of [place]: 3/5 + Outpatient Therapy Assessment Impairments Problems/ Palpation Tenderness,Impaired Range of Motion,Impaired Impairmments Strength,Impaired Endurance,Impaired Transfers,Impaired Gait Pattern,Impaired Walking,Impaired Standing, Impaired Sitting,Impaired Household Care,Impaired Stair Climbing,Impaired Incline Stepping,Impaired Stepping on Uneven Surface,Impaired Squatting,Impaired Bending, Impaired Recreational Activities,Subjective C/O Pain Short Term Goals Number of Weeks 4 Decreased Palpation Yes: 0/4 TTP lumbar paraspinals Tenderness Increase Range of Yes: improve extension AROM to 25% available ROM. Motion Increase Strength Yes: improve BLE strength by 1/5 MMT grade Improve Oswestry Yes: Improve YOLIE by 2 points to improve QOL. Score Decrease Subjective Yes: Verbalize 48 hour pain average of 6/10 C/O Pain Patient to be Ind w/ Yes: Verbalize adherence to HEP HEP Nursing Home Goals Increase Range of Yes: Improve extension AROM to at least 20 degrees. Motion Increase Strength Yes: BLE 5/5 MMT to maximize functional strength Improve Transfers Yes: demo ability to perform supine<>sitting without assistance Increase Ability to Yes: 10 minutes without increase in LBP Walk Improve Oswestry Yes: Improve to moderate disability to improve QOL. Score Decrease Subjective Yes: Verbalize 48 hour pain average of 08/25 C/O Pain Patient to be Ind w/ Yes HEP Outpatient Therapy Plan of Care Treatment Plan May Include Therapeutic Exercise Yes Including Home Exercise Program Manual Therapy Yes Techniques Neuromuscular Re- Yes education Therapeutic Yes Activities to Return to Previous Functional/Work Level Gait Training Yes ADL/Self Care Yes Education Dry Needling Yes Thermal Modalities Yes Electrical Yes Stimulation Ultrasound/ Yes Phonophoresis Iontophoresis Yes Orthotics/Bracing/ Yes Splinting Massage Yes Eval/Re-Eval Yes Aquatic Therapy Yes Frequency Times per week 2-3 times Duration Number of Weeks 6-8 weeks Addendums This patient is a No candidate for social or vocational rehab ? Patient/Guardian Yes verbally acknowledges understanding of treatment program and consents to further treatment? Patient/Guardian Yes verbally acknowledges understanding of diagnosis, prognosis and goals for treatment? Eval Complexity PT Charges 41367 - Moderate Complexity Shoulder/Elbow Eval Shoulder Objective Measurements Elbow Objective Measurements PHYSICIAN CERTIFICATION: I certify the specified therapy services for Malka Rosenberg are required, authorized, and reviewed every 30 days.
== END 2024-11-10 23:59 | disposition home or self-care (01) ==
LOC: PT 15:00
PROVIDERS: PCP Internal Medicine; Visit Provider Internal Medicine
DX: S30.0XXD Contusion of lower back and pelvis, subsequent encounter (principal); M53.3 Sacrococcygeal disorders, not elsewhere classified; W19.XXXD Unspecified fall, subsequent encounter
CPT/HCPCS: 97110; 97162

== ENCOUNTER 2024-11-14 10:48 | Outpatient (CLI) | payer MEDICARE, BC, SELFPAY ==
--- OUTSIDE RECORDS SUMMARY | 2024-11-16 10:53 | XMS_ITS | Clinical Summary ---
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 Phone Unavailable Primary Care Provider Unavailabl e Immunizations Immunization Administration Dates Next Due Influenza, Unspecified 02/12/2009 Social History Tobacco Use Types Packs/Day Years Used Date Smoking Tobacco: Never Assessed Comments Unknown Sex and Gender Information Value Date Recorded Sex Assigned at Not on file Legal Sex Female 8:58 PM EDT Gender Identity Not on file Sexual Orientation Not on file Last Filed Vital Signs Vital Sign Reading Time Taken Comments Blood Pressure 162/95 01/20/2022 4:25 PM EDT Pulse 114 01/20/2022 4:25 PM EDT Temperature - - Respiratory Rate - - Oxygen Saturation 97% 01/20/2022 4:25 PM EDT RA Inhaled Oxygen Concentration - - Weight - - Height - - Body Mass Index - - Plan of Treatment Not on file
--- OUTSIDE RECORDS SUMMARY | 2024-11-16 10:53 | XMS_ITS | Data Portability ---
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 Plan of Treatment Reminders Order Date Submit Date Provider Last Modified By Organization Details Last Modified Time Details Appointments None recorded. Lab urinalysis panel, auto [address] [facility], [address], [place], [address], 3 21:26:56 urinalysis panel, auto [address] [facility], [address], [place], [address], 3 23:08:22 urinalysis panel, auto [address] [facility], [address], [place], [address], 2 11:07:56 Referral None recorded. Procedures None recorded. Surgeries None recorded. Imaging None recorded. Medication Orders None recorded. Patient TargetsNo targets recorded. Patient Instructions Encounter Date Encounter Id Patient Instructions Last Modified By Organization Details Last Modified Time 05/07/2022 [id number] 1. Laryngoscopy performed. Full risks, complications, and [...] Abnormal Flag Note LastModifiedBy Organization Detail LastModifiedTime 04/28/20 22 04/28/2022 urina lysis panel , auto Unknown Analyte Clean Catch Not Available [facility] [address], [place], [address], 04/28/2022 10:39:30 04/28/20 22 04/28/2022 urina lysis panel , auto Unknown Analyte Yellow Not Available [facility] [address], [place], [address], 04/28/2022 10:39:30 04/28/20 22 04/28/2022 urina lysis panel , auto Unknown Analyte Clear Not Available [facility] [address], [place], [address], 04/28/2022 10:39:30 04/28/20 22 04/28/2022 urina lysis panel , auto Unknown Analyte 1.005 Not Available [facility] [address], [place], [address], 04/28/2022 10:39:30 04/28/20 22 04/28/2022 urina lysis panel , auto Unknown Analyte 5.0 Not Available [facility] [address], [place], [address], 04/28/2022 10:39:30 04/28/20 22 04/28/2022 urina lysis panel , auto Unknown Analyte Negati ve Not Available [facility] [address], [place], [address], 04/28/2022 10:39:30 04/28/20 22 04/28/2022 urina lysis panel , auto Unknown Analyte Negati ve Not Available [facility] [address], [place], [address], 04/28/2022 10:39:30 04/28/20 22 04/28/2022 urina lysis panel , auto Unknown Analyte Negati ve Not Available [facility] [address], [place], [address], 04/28/2022 10:39:30 04/28/20 22 04/28/2022 urina lysis panel , auto Unknown Analyte Normal Not Available [facility] [address], [place], [address], 04/28/2022 10:39:30 04/28/20 22 04/28/2022 urina lysis panel , auto Unknown Analyte Negati ve Not Available [facility] [address], [place], [address], 04/28/2022 10:39:30 04/28/20 22 04/28/2022 urina lysis panel , auto Unknown Analyte Normal Not Available [facility] [address], [place], [address], 04/28/2022 10:39:30 04/28/20 22 04/28/2022 urina lysis panel , auto Unknown Analyte Negati ve Not Available [facility] [address], [place], [address], 04/28/2022 10:39:30 04/28/20 22 04/28/2022 urina lysis panel , auto Unknown Analyte Negati ve Not Available [facility] [address], [place], [address], 04/28/2022 10:39:30 05/30/19 23 05/30/2022 urina lysis panel , auto Unknown Analyte Clean Catch Not Available [facility] [address], [place], [address], 05/30/2022 12:40:11 05/30/19 23 05/30/2022 urina lysis panel , auto Unknown Analyte Yellow Not Available [facility] [address], [place], [address], 05/30/2022 12:40:11 05/30/19 23 05/30/2022 urina lysis panel , auto Unknown Analyte Clear Not Available [facility] [address], [place], [address], 05/30/2022 12:40:11 05/30/19 23 05/30/2022 urina lysis panel , auto Unknown Analyte 1.010 Not Available [facility] [address], [place], [address], 05/30/2022 12:40:11 05/30/19 23 05/30/2022 urina lysis panel , auto Unknown Analyte 1.003- 1.035 Not Available [facility] [address], [place], [address], 05/30/2022 12:40:11 05/30/19 23 05/30/2022 urina lysis panel , auto Unknown Analyte 5.0 Not Available [facility] [address], [place], [address], 05/30/2022 12:40:11 05/30/19 23 05/30/2022 urina lysis panel , auto Unknown Analyte 5.0-8. 0 Not Available [facility] [address], [place], [address], 05/30/2022 12:40:11 05/30/19 23 05/30/2022 urina lysis panel , auto Unknown Analyte Negati ve Not Available [facility] [address], [place], [address], 05/30/2022 12:40:11 05/30/1905/30/2022 urina lysis panel , auto Unknown Analyte Negati ve Not Available [facility] [address], [place], [address], 05/30/2022 12:40:11 05/30/1905/30/2022 urina lysis panel , auto Unknown Analyte Negati ve Not Available [facility] [address], [place], [address], 05/30/2022 12:40:05/30/19 23 05/30/2022 urina lysis panel , auto Unknown Analyte Negati ve Not Available [facility] [address], [place], [address], 05/30/2022 12:40:05/30/1905/30/2022 urina lysis panel , auto Unknown Analyte Negati ve Not Available [facility] [address], [place], [address], 05/30/2022 12:40:05/30/1905/30/2022 urina lysis panel , auto Unknown Analyte Negati ve Not Available [facility] [address], [place], [address], 05/30/2022 12:40:05/30/19 23 05/30/2022 urina lysis panel , auto Unknown Analyte 100 mg/dl Not Available [facility] [address], [place], [address], 05/30/2022 12:40:05/30/1905/30/2022 urina lysis panel , auto Unknown Analyte Normal Not Available [facility] [address], [place], [address], 05/30/2022 12:40:11 05/30/1909 0605/30/2022 urina lysis panel , auto Unknown Analyte Negati ve Not Available [facility] [address], [place], [address], 05/30/2022 12:40:11 05/30/19 23 05/30/2022 urina lysis panel , auto Unknown Analyte Negati ve Not Available [facility] [address], [place], [address], 05/30/2022 12:40:05/30/1905/30/2022 urina lysis panel , auto Unknown Analyte Normal Not Available [facility] [address], [place], [address], 05/30/2022 12:40:05/30/1905/30/2022 urina lysis panel , auto Unknown Analyte Normal 1 mg/dl Not Available [facility] [address], [place], [address], 05/30/2022 12:40:05/30/19 23 05/30/2022 urina lysis panel , auto Unknown Analyte Negati ve Not Available [facility] [address], [place], [address], 05/30/2022 12:40:05/30/1905/30/2022 urina lysis panel , auto Unknown Analyte Negati ve Not Available [facility] [address], [place], [address], 05/30/2022 12:40:11 01/05/30/2022 urina lysis panel , auto Unknown Analyte Negati ve Not Available [facility] [address], [place], [address], 05/30/2022 12:40:11 05/30/19 23 05/30/2022 urina lysis panel , auto Unknown Analyte Negati ve Not Available [facility] [address], [place], [address], 05/30/2022 12:40:11 07/29/1907/28/2022 urina lysis panel , auto Unknown Analyte Clean Catch Not Available [facility] [address], [place], [address], 07/28/2022 13:46:02 07/29/1907/28/2022 urina lysis panel , auto Unknown Analyte Yellow Not Available [facility] [address], [place], [address], 07/28/2022 13:46:02 07/29/19 23 07/28/2022 urina lysis panel , auto Unknown Analyte Clear Not Available [facility] [address], [place], [address], 07/28/2022 13:46:02 07/29/19 23 07/28/2022 urina lysis panel , auto Unknown Analyte 1.015 Not Available [facility] [address], [place], [address], 07/28/2022 13:46:02 07/29/19 23 07/28/2022 urina lysis panel , auto Unknown Analyte 1.003- 1.035 Not Available [facility] [address], [place], [address], 07/28/2022 13:46:02 07/29/19 23 07/28/2022 urina lysis panel , auto Unknown Analyte 5.0 Not Available [facility] [address], [place], [address], 07/28/2022 13:46:02 07/29/1907/28/2022 urina lysis panel , auto Unknown Analyte 5.0-8. 0 Not Available [facility] [address], [place], [address], 07/28/2022 13:46:02 07/29/19 23 07/28/2022 urina lysis panel , auto Unknown Analyte Negati ve Not Available [facility] [address], [place], [address], 07/28/2022 13:46:02 07/29/19 23 07/28/2022 urina lysis panel , auto Unknown Analyte Negati ve Not Available [facility] [address], [place], [address], 07/28/2022 13:46:02 07/29/1907/28/2022 urina lysis panel , auto Unknown Analyte Negati ve Not Available [facility] [address], [place], [address], 07/28/2022 13:46:02 07/29/19 23 07/28/2022 urina lysis panel , auto Unknown Analyte Negati ve Not Available [facility] [address], [place], [address], 07/28/2022 13:46:02 07/29/19 23 07/28/2022 urina lysis panel , auto Unknown Analyte Negati ve Not Available [facility] [address], [place], [address], 07/28/2022 13:46:02 07/29/1907/28/2022 urina lysis panel , auto Unknown Analyte Negati ve Not Available [facility] [address], [place], [address], 07/28/2022 13:46:02 07/29/19 23 07/28/2022 urina lysis panel , auto Unknown Analyte Normal Not Available [facility] [address], [place], [address], 07/28/2022 13:46:02 07/29/1907/28/2022 urina lysis panel , auto Unknown Analyte Normal Not Available [facility] [address], [place], [address], 07/28/2022 13:46:02 07/29/1907/28/2022 urina lysis panel , auto Unknown Analyte Negati ve Not Available [facility] [address], [place], [address], 07/28/2022 13:46:02 07/29/1907/28/2022 urina lysis panel , auto Unknown Analyte Negati ve Not Available [facility] [address], [place], [address], 07/28/2022 13:46:02 07/29/19 23 07/28/2022 urina lysis panel , auto Unknown Analyte Normal Not Available [facility] [address], [place], [address], 07/28/2022 13:46:02 07/29/19 23 07/28/2022 urina lysis panel , auto Unknown Analyte Normal 1 mg/dl Not Available [facility] [address], [place], [address], 07/28/2022 13:46:02 07/29/19 23 07/28/2022 urina lysis panel , auto Unknown Analyte Negati ve Not Available [facility] [address], [place], [address], 07/28/2022 13:46:02 07/29/19 23 07/28/2022 urina lysis panel , auto Unknown Analyte Negati ve Not Available [facility] [address], [place], [address], 07/28/2022 13:46:02 07/29/19 23 07/28/2022 urina lysis panel , auto Unknown Analyte Negati ve Not Available [facility] [address], [place], [address], 07/28/2022 13:46:02 07/29/19 23 07/28/2022 urina lysis panel , auto Unknown Analyte Negati ve Not Available [facility] [address], [place], [address], 07/28/2022 13:46:02 Result Notes None recorded. Problems No Known Problems Procedures Surgical History Date Name Laterality Status Provider Name and Address Organization Details Recorded Time 05/07/20 Laryngoscopy Flex completed Luhelvira Sorensen [facility] 05/07/2022 11:32:48 04/28/20 Post Void Residual; Ultrasound completed Jami Madrigal [facility] 04/28/2022 10:39:22 section completed [facility] 04/21/2022 12:51:07 Cholecystectomy completed [facility] 04/21/2022 12:51:12 Imaging Results None recorded. Procedure Notes None recorded. Medical Equipment None Reported. Allergies Allergen ID Allergen Name Allergen Category Reaction Reaction Severity Criticality Documentation Date Start Date Code Code System Note Provider Name and Address Organization Details Recorded Time 320554 Product containin g penicilli n (product) medicatio n Not available Not available Not available 04/21/2022 81246 8001 SNOMED [facility] 12:45:43 208522 levothyro xine sodium medicatio n Not available Not available Not available 04/21/2022 46586 RxNorm [facility] 2 12:45:57 Medications Name Sig Start Date [...] Updated DateTime 07/28/2022 165.1 cm 27.5 kg/m2 96047.74 g Casandra Ewing [facility] 07/28/2022 13:45:31 Date Recorded Body height Body mass index (BMI) Body weight Provider Name and Address Organization Details Last Updated DateTime 04/21/2022 165.1 cm 24.1 kg/m2 49157.89 g Angelina Ahuja [facility] 04/21/2022 12:45:30 Date Recorded Body height Body mass index (BMI) Body weight Provider Name and Address Organization Details Last Updated DateTime 04/28/2022 165.1 cm 25 kg/m2 25935.86 g Jami Madrigal [facility] 04/28/2022 10:39:13 Date Recorded Body height Body mass index (BMI) Body weight Body temperature Oxygen saturation Oxygen saturation in Arterial blood by Pulse oximetry Heart rate Systolic blood pressure Diastolic blood pressure Provider Name and Address Organization Details Last Updated DateTime 165.1 cm 27.5 kg/m2 67697.7 4 g 97.5 [degF] 96 % 96 % 101 /min 142 mm[Hg] 84 mm[Hg] Yuliet Jackson [facility] 2 11:10:42 Social History Question Answer Notes LastModified by Organizat ion Details LastModified Time Tobacco Smoking Status Former Smoker Angelina Ahuja [facility] 04/21/2022 12:50:53 What Is Your Relationship Status? [...] available 2021 12:50:37 Medical History Condition Response Arthritis Y Cancer N Stroke Y Ulcers Y Bleeding Disorder N Anesthesia Complications N Allergies/Hayfever Y Diabetes Y Hypertension Y Gynecological HistoryNo gynecological history recorded. 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 She will have the visiting nurse remove the catheter and follow up with me in 1-2 weeks With bladder scan postvoid residual [id number] MD ERNESTINA GUTIERREZ [facility] [address] [place] [address] 04/28/2022 10:26:11 04/28/2022 11:07:53 Retention of urine 623841307 R33.9 Follow-up 1 month with bladder scan postvoid residual. She will continue with tamsulosin for now [id number] MD ERNESTINA GUTIERREZ [facility] [address] [place] [phone] 05/30/2022 09:40:53 05/30/2022 10:12:44 Retention of urine 303078920 R33.9 Follow-up 2 month with bladder scan postvoid residual. [id number] MD ERNESTINA GUTIERREZ [facility] [address] [address] 07/28/2022 11:12:57 07/28/2022 11:56:04 Retention of urine 418654322 R33.9 Resolved. She will follow-up in 6 months earlier if necessary Health Concerns Section Related Observation LastModified by Organization Detai ls LastModified Time None Recorded Concern Status LastModified by Organization Details LastModified Time None Recorded Advance Directives Directive None Recorded Payers Insurance Date Sequence Insurance Name Policy Number Policy [place] Covered Member ID [place] Member ID Guarantor Name 09/09/2022 2 [place] [id number] Malka L Shakira [id number] Malka L Shakira 05/30/2022 2 [place]) [id number] Malka L Shakira [id number] Malka L Shakira 09/09/2022 1 [place] Malka L Shakira [id number] Malka L Shakira Notes Date Note [...] her catheter if necessary. LORIE MERINO MD [address] [place] [address], [phone], [facility] 04/27/2022 16:18:57 04/28/2022 text/html Patient is here [...] follow-up in 1 month. LORIE MERINO MD [address] [place] [address], [phone], [facility] 04/28/2022 11:08:32 05/07/2022 text/html Malka is a [...] eating a normal diet. MICHELLE JONES MD [address] [place] [address], [phone], [facility] 05/07/2022 11:51:12 05/30/2022 text/html Patient is here [...] 2 weeks stop tamsulosin. 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 She has weaned off of bethanechol completely. She is still on tamsulosin. Her urine today is unremarkable. She typically sleeps through the night. She feels she empties well. She has upcoming hip surgery and I suggest she continue with the tamsulosin. LORIE MERINO MD [address] [place], [address], [facility] 07/29/2022 21:27:24 OBGyn Episode No OBEpisode recorded.
== END 2024-11-14 23:59 | disposition home or self-care (01) ==
LOC: LAB.DROPOF 11-16 10:49
PROVIDERS: PCP Internal Medicine; Visit Provider Internal Medicine
DX: N39.0 Urinary tract infection, site not specified (principal)
CPT/HCPCS: 87086; 87088; 87186

== ENCOUNTER 2024-12-06 09:30 | Outpatient (CLI) | payer MEDICARE, BC, SELFPAY ==
[2024-12-06 14:05] LABS: Alanine Aminotransferase 22 U/L (12-78); Albumin Level 4.5 g/dl (3.5-5.0); Albumin/Globulin Ratio 1.6 (1.1-1.8); Alkaline Phosphatase 118 U/L (38-126); Anion Gap 14.6 mEq/L (5-15); Aspartate Amino Transferase 33 U/L (14-36); Bilirubin,Total 0.9 mg/dl (0.2-1.3); Blood Urea Nitrogen 16 mg/dl (7-17); Calcium 10.2 mg/dl (8.4-10.2); Carbon Dioxide 29 mmol/L (22.0-30.0); Chloride 101 mmol/L (98-107); Cholesterol 153 mg/dl (140-200); Creatinine,Serum 1.00 mg/dl (0.52-1.04); Estimated Glomerular Filt Rate 53 ml/min (>60); GFR (African American) 64 ML/MIN (>60); Globulin 2.8 g/dL (1.3-3.2); Glucose 108 mg/dl (74-100); HDL Cholesterol 61 mg/dl (40-60); Potassium 5.6 mmoL/L (3.5-5.1); Sodium 139 mmol/L (136-145); Total Protein,Serum 7.3 g/dl (6.3-8.2); Triglycerides 184 mg/dl (30-150)
[2024-12-06 14:16] LABS: Hemoglobin A1C 6.5 % (4.0-6.0)
--- OUTSIDE RECORDS SUMMARY | 2024-12-07 11:50 | XMS_ITS | Data Portability ---
Author Organization [place] - SHAQUILLE Garcia BOWIE CLOSED Address [address] [facility] [address] [place] [address] Care Team Providers Care Architectural Model Maker Name Role Phone HAI HOUSE Primary Care Provider [phone] Assessment No assessment recorded. Plan of Treatment Reminders Order Date Submit Date Provider Last Modified By Organization Details Last Modified Time Details Appointments None recorded. Lab urinalysis panel, auto [address] [facility], [address], [place], [address], 3 21:26:56 urinalysis panel, auto [address] [facility], [address], [place], [address], 3 23:08:22 urinalysis panel, auto [address] [facility], [address], [place], [address], 2 11:07:56 Referral None recorded. Procedures None recorded. Surgeries None recorded. Imaging None recorded. Medication Orders None recorded. Patient TargetsNo targets recorded. Patient Instructions Encounter Date Encounter Id Patient Instructions Last Modified By Organization Details Last Modified Time 05/07/2022 [id number] 1. Laryngoscopy performed. Full risks, complications, and [...] Available [facility] [address], [place], [address], 04/28/2022 10:39:30 04/28/20 22 04/28/2022 urina lysis panel , auto Unknown Analyte Yellow Not Available [facility] [address] [facility] [address], [place], [address], 04/28/2022 10:39:30 04/28/20 22 04/28/2022 urina lysis panel , auto Unknown Analyte Clear Not Available [facility] [address] [facility] [address], [place], [address], 04/28/2022 10:39:30 04/28/20 22 04/28/2022 urina lysis panel , auto Unknown Analyte 1.005 Not Available [facility] [address], [address], 04/28/2022 10:39:30 04/28/20 22 04/28/2022 urina lysis panel , auto Unknown Analyte 5.0 Not Available [facility] [address], [place], [address], 04/28/2022 10:39:30 04/28/20 22 04/28/2022 urina lysis panel , auto Unknown Analyte Negati ve Not Available [facility] [address], [place], [address], 04/28/2022 10:39:30 04/28/20 22 04/28/2022 urina lysis panel , auto Unknown Analyte Negati ve Not Available [facility] [address], [place], [address], 04/28/2022 10:39:30 04/28/20 22 04/28/2022 urina lysis panel , auto Unknown Analyte Negati ve Not Available [facility] [address], [place], [address], 04/28/2022 10:39:30 04/28/20 22 04/28/2022 urina lysis panel , auto Unknown Analyte Normal Not Available [facility] [address], [place], [address], 04/28/2022 10:39:30 04/28/20 22 04/28/2022 urina lysis panel , auto Unknown Analyte Negati ve Not Available [facility] [address], [place], [address], 04/28/2022 10:39:30 04/28/20 22 04/28/2022 urina lysis panel , auto Unknown Analyte Normal Not Available [facility] [address], [place], [address], 04/28/2022 10:39:30 04/28/20 22 04/28/2022 urina lysis panel , auto Unknown Analyte Negati ve Not Available [facility] [address], [place], [address], 04/28/2022 10:39:30 04/28/20 22 04/28/2022 urina lysis panel , auto Unknown Analyte Negati ve Not Available [facility] [address], [place], [address], 04/28/2022 10:39:30 05/30/19 23 05/30/2022 urina lysis panel , auto Unknown Analyte Clean Catch Not Available [facility] [address], [place], [address], 05/30/2022 12:40:11 05/30/19 23 05/30/2022 urina lysis panel , auto Unknown Analyte Yellow Not Available [facility] [address], [place], [address], 05/30/2022 12:40:11 05/30/19 23 05/30/2022 urina lysis panel , auto Unknown Analyte Clear Not Available [facility] [address], [place], [address], 05/30/2022 12:40:11 05/30/19 23 05/30/2022 urina lysis panel , auto Unknown Analyte 1.010 Not Available [facility] [address], [place], [address], 05/30/2022 12:40:11 05/30/19 23 05/30/2022 urina lysis panel , auto Unknown Analyte 1.003- 1.035 Not Available [facility] [address], [place], [address], 05/30/2022 12:40:11 05/30/19 23 05/30/2022 urina lysis panel , auto Unknown Analyte 5.0 Not Available [facility] [address], [place], [address], 05/30/2022 12:40:11 05/30/19 23 05/30/2022 urina lysis panel , auto Unknown Analyte 5.0-8. 0 Not Available [facility] [address], [place], [address], 05/30/2022 12:40:11 05/30/19 23 05/30/2022 urina lysis panel , auto Unknown Analyte Negati ve Not Available [facility] [address], [place], [address], 05/30/2022 12:40:11 05/30/1905/30/2022 urina lysis panel , auto Unknown Analyte Negati ve Not Available [facility] [address], [place], [address], 05/30/2022 12:40:11 05/30/1905/30/2022 urina lysis panel , auto Unknown Analyte Negati ve Not Available [facility] [address], [place], [address], 05/30/2022 12:40:05/30/19 23 05/30/2022 urina lysis panel , auto Unknown Analyte Negati ve Not Available [facility] [address], [place], [address], 05/30/2022 12:40:05/30/1905/30/2022 urina lysis panel , auto Unknown Analyte Negati ve Not Available [facility] [address], [place], [address], 05/30/2022 12:40:05/30/1905/30/2022 urina lysis panel , auto Unknown Analyte Negati ve Not Available [facility] [address], [place], [address], 05/30/2022 12:40:05/30/19 23 05/30/2022 urina lysis panel , auto Unknown Analyte 100 mg/dl Not Available [facility] [address], [place], [address], 05/30/2022 12:40:05/30/1905/30/2022 urina lysis panel , auto Unknown Analyte Normal Not Available [facility] [address], [place], [address], 05/30/2022 12:40:11 05/30/1909 0605/30/2022 urina lysis panel , auto Unknown Analyte Negati ve Not Available [facility] [address], [place], [address], 05/30/2022 12:40:11 05/30/19 23 05/30/2022 urina lysis panel , auto Unknown Analyte Negati ve Not Available [facility] [address], [place], [address], 05/30/2022 12:40:05/30/1905/30/2022 urina lysis panel , auto Unknown Analyte Normal Not Available [facility] [address], [place], [address], 05/30/2022 12:40:05/30/1905/30/2022 urina lysis panel , auto Unknown Analyte Normal 1 mg/dl Not Available [facility] [address], [place], [address], 05/30/2022 12:40:05/30/19 23 05/30/2022 urina lysis panel , auto Unknown Analyte Negati ve Not Available [facility] [address], [place], [address], 05/30/2022 12:40:05/30/1905/30/2022 urina lysis panel , auto Unknown Analyte Negati ve Not Available [facility] [address], [place], [address], 05/30/2022 12:40:11 01/05/30/2022 urina lysis panel , auto Unknown Analyte Negati ve Not Available [facility] [address], [place], [address], 05/30/2022 12:40:11 05/30/19 23 05/30/2022 urina lysis panel , auto Unknown Analyte Negati ve Not Available [facility] [address], [place], [address], 05/30/2022 12:40:11 07/29/1907/28/2022 urina lysis panel , auto Unknown Analyte Clean Catch Not Available [facility] [address], [place], [address], 07/28/2022 13:46:02 07/29/1907/28/2022 urina lysis panel , auto Unknown Analyte Yellow Not Available [facility] [address], [place], [address], 07/28/2022 13:46:02 07/29/19 23 07/28/2022 urina lysis panel , auto Unknown Analyte Clear Not Available [facility] [address], [place], [address], 07/28/2022 13:46:02 07/29/19 23 07/28/2022 urina lysis panel , auto Unknown Analyte 1.015 Not Available [facility] [address], [place], [address], 07/28/2022 13:46:02 07/29/19 23 07/28/2022 urina lysis panel , auto Unknown Analyte 1.003- 1.035 Not Available [facility] [address], [place], [address], 07/28/2022 13:46:02 07/29/19 23 07/28/2022 urina lysis panel , auto Unknown Analyte 5.0 Not Available [facility] [address], [place], [address], 07/28/2022 13:46:02 07/29/1907/28/2022 urina lysis panel , auto Unknown Analyte 5.0-8. 0 Not Available [facility] [address], [place], [address], 07/28/2022 13:46:02 07/29/19 23 07/28/2022 urina lysis panel , auto Unknown Analyte Negati ve Not Available [facility] [address], [place], [address], 07/28/2022 13:46:02 07/29/19 23 07/28/2022 urina lysis panel , auto Unknown Analyte Negati ve Not Available [facility] [address], [place], [address], 07/28/2022 13:46:02 07/29/1907/28/2022 urina lysis panel , auto Unknown Analyte Negati ve Not Available [facility] [address], [place], [address], 07/28/2022 13:46:02 07/29/19 23 07/28/2022 urina lysis panel , auto Unknown Analyte Negati ve Not Available [facility] [address], [place], [address], 07/28/2022 13:46:02 07/29/19 23 07/28/2022 urina lysis panel , auto Unknown Analyte Negati ve Not Available [facility] [address], [place], [address], 07/28/2022 13:46:02 07/29/1907/28/2022 urina lysis panel , auto Unknown Analyte Negati ve Not Available [facility] [address], [place], [address], 07/28/2022 13:46:02 07/29/19 23 07/28/2022 urina lysis panel , auto Unknown Analyte Normal Not Available [facility] [address], [place], [address], 07/28/2022 13:46:02 07/29/1907/28/2022 urina lysis panel , auto Unknown Analyte Normal Not Available [facility] [address], [place], [address], 07/28/2022 13:46:02 07/29/1907/28/2022 urina lysis panel , auto Unknown Analyte Negati ve Not Available [facility] [address], [place], [address], 07/28/2022 13:46:02 07/29/1907/28/2022 urina lysis panel , auto Unknown Analyte Negati ve Not Available [facility] [address], [place], [address], 07/28/2022 13:46:02 07/29/19 23 07/28/2022 urina lysis panel , auto Unknown Analyte Normal Not Available [facility] [address], [place], [address], 07/28/2022 13:46:02 07/29/19 23 07/28/2022 urina lysis panel , auto Unknown Analyte Normal 1 mg/dl Not Available [facility] [address], [place], [address], 07/28/2022 13:46:02 07/29/19 23 07/28/2022 urina lysis panel , auto Unknown Analyte Negati ve Not Available [facility] [address], [place], [address], 07/28/2022 13:46:02 07/29/19 23 07/28/2022 urina lysis panel , auto Unknown Analyte Negati ve Not Available [facility] [address], [place], [address], 07/28/2022 13:46:02 07/29/19 23 07/28/2022 urina lysis panel , auto Unknown Analyte Negati ve Not Available [facility] [address], [place], [address], 07/28/2022 13:46:02 07/29/19 23 07/28/2022 urina lysis panel , auto Unknown Analyte Negati ve Not Available [facility] [address], [place], [address], 07/28/2022 13:46:02 Result Notes None recorded. Problems No Known Problems Procedures Surgical History Date Name Laterality Status Provider Name and Address Organization Details Recorded Time 05/07/20 Laryngoscopy Flex completed Luhelvira Sorensen [facility] 05/07/2022 11:32:48 04/28/20 Post Void Residual; Ultrasound completed Jami Madrigal [facility] 04/28/2022 10:39:22 section completed [facility] 04/21/2022 12:51:07 Cholecystectomy completed [facility] 04/21/2022 12:51:12 Imaging Results None recorded. Procedure Notes None recorded. Medical Equipment None Reported. Allergies Allergen ID Allergen Name Allergen Category Reaction Reaction Severity Criticality Documentation Date Start Date Code Code System Note Provider Name and Address Organization Details Recorded Time 412206 Product containin g penicilli n (product) medicatio n Not available Not available Not available 04/21/2022 95316 8001 SNOMED [facility] 12:45:43 127455 levothyro xine sodium medicatio n Not available Not available Not available 04/21/2022 72912 RxNorm [facility] 2 12:45:57 Medications Name Sig Start [...] Updated DateTime 07/28/2022 165.1 cm 27.5 kg/m2 72344.74 g Casandra Ewing [facility] 07/28/2022 13:45:31 Date Recorded Body height Body mass index (BMI) Body weight Provider Name and Address Organization Details Last Updated DateTime 04/21/2022 165.1 cm 24.1 kg/m2 74461.89 g Angelina Ahuja [facility] 04/21/2022 12:45:30 Date Recorded Body height Body mass index (BMI) Body weight Provider Name and Address Organization Details Last Updated DateTime 04/28/2022 165.1 cm 25 kg/m2 93822.86 g Jami Madrigal [facility] 04/28/2022 10:39:13 Date Recorded Body height Body mass index (BMI) Body weight Body temperature Oxygen saturation Oxygen saturation in Arterial blood by Pulse oximetry Heart rate Systolic And Diastolic Provider Name and Address Organization Details Last Updated DateTime 165.1 cm 27.5 kg/m2 78273.7 4 g 97.5 [degF] 96 % 96 % 101 /min 142/84 mm[Hg] Yuliet Jackson 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 She will have the visiting nurse remove the catheter and follow up with me in 1-2 weeks With bladder scan postvoid residual [id number] MD ERNESTINA GUTIERREZ [facility] [address] [place] [address] 04/28/2022 10:26:11 04/28/2022 11:07:53 Retention of urine 126496293 R33.9 Follow-up 1 month with bladder scan postvoid residual. She will continue with tamsulosin for now [id number] MD ERNESTINA GUTIERREZ [facility] [address] [place] [address] 05/30/2022 09:40:53 05/30/2022 10:12:44 Retention of urine 493812129 R33.9 Follow-up 2 month with bladder scan postvoid residual. [id number] MD ERNESTINA GUTIERREZ [facility] [address] [place] [address] 07/28/2022 11:12:57 07/28/2022 11:56:04 Retention of urine [id number] R33.9 Resolved. She will follow-up in 6 [...] Name 09/09/2022 2 [place] [id number] Malka L Shakira [id number] Malka L Shakira 05/30/2022 2 [place] [id number] Malka L Shakira [id number] Malka L Shakira 09/09/2022 1 [place] Malka L Shakira [id number] Malka L Shakira Notes Date Note [...] her catheter if necessary. [facility], [address], [facility] 04/27/2022 16:18:57 04/28/2022 text/html Patient is here [...] follow-up in 1 month. LORIE MERINO [facility] [place], [address], [facility] 04/28/2022 11:08:32 05/07/2022 text/html Malka is a [...] eating a normal diet. MICHELLE JONES MD [address] [place] [address], [address], [facility] 05/07/2022 11:51:12 05/30/2022 text/html Patient is here [...] 2 weeks stop tamsulosin. 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 She has weaned off of bethanechol completely. She is still on tamsulosin. Her urine today is unremarkable. She typically sleeps through the night. She feels she empties well. She has upcoming hip surgery and I suggest she continue with the tamsulosin. LORIE MERINO MD [facility] [place], [address], [facility] 07/29/2022 21:27:24 OBGyn Episode No OBEpisode recorded.
--- OUTSIDE RECORDS SUMMARY | 2024-12-07 11:50 | XMS_ITS | Clinical Summary ---
Author Organization [facility] Address [address] [place] [address] Care Team Providers Care Senior Physician Name Role Phone Hai House MD Primary Care Provider Allergies Active Allergy Reactions Criticality Noted Date Comments Gunnar Inhibitors Other (See Comments) Medium 01/20/2022 Hyperkalemia Levofloxacin Hives High 03/12/2016 Penicillins Unknown - Low Severity Low 03/12/2016 A CHILD WAS TOLD NOT TO TAKE Medications metFORMIN (GLUCOPHAGE) 500 MG tablet Take 1 tablet by mouth 2 (Two) Times a Day With Meals. Active levothyroxine (SYNTHROID, LEVOTHROID) 88 MCG tablet Take 1 tablet by mouth Every Morning. Active aspirin 81 MG chewable tablet Chew 1 tablet Daily. 30 tablet 2 Active clopidogrel (PLAVIX) 75 MG tablet Take 1 tablet by mouth Daily. 30 tablet 2 Active Cholecalciferol (Vitamin D3) 50 MCG (2000 UT) capsule Take 1 capsule by mouth Daily. Active [place]-3 Fatty Acids (fish oil) 1000 MG capsule capsule Take 1 capsule by mouth Daily With Breakfast. OTC Active multivitamin with minerals tablet tablet Take 1 tablet by mouth Daily. OTC Active vitamin B-12 (CYANOCOBALAMIN) 1000 MCG tablet Take 1 tablet by mouth Daily. OTC Active acetaminophen (TYLENOL) 325 MG tablet Take 2 tablets by mouth Every 4 (Four) Hours As Needed for Mild Pain. 2 Active Additional Information Patient taking differently:650 mg Oral Every 4 Hours PRN, Mild Pain,Pt states she take 2 tylenol PM at bedtime, Reported on 01/23/2023 tamsulosin (FLOMAX) 0.4 MG capsule 24 hr capsule Take 1 capsule by mouth Daily. Active linaclotide (LINZESS) 290 MCG capsule capsule Take 1 capsule by mouth Daily As Needed (constipation). Active pantoprazole (PROTONIX) 40 MG EC tablet Take 1 tablet by mouth Daily. Active atorvastatin (LIPITOR) 20 MG tablet Take 1 tablet by mouth Every Night. 3 Active metoprolol tartrate (LOPRESSOR) 25 MG tablet Take 0.5 tablets by mouth Every Night. Takes 1/2 at bedtime Active HYDROcodone-acet aminophen (NORCO) 5-325 MG per tabletIndication s:Status post total replacement of right hip Take 1 tablet by mouth Every 6 (Six) Hours As Needed for Moderate Pain. 0 3 Active Active Problems Problem Noted Date Diagnosed Date Acute blood loss anemia 08/06/2022 Postoperative pain 08/06/2022 Arthritis of right hip 08/04/2022 Status post total replacement of right hip, ante rior 08/04/2022 GIH (gastrointestinal hemorrhage) 03/23/2022 T2DM (type 2 diabetes mellitus) 03/20/2022 Acute urinary retention 03/20/2022 Generalized weakness 03/20/2022 Leukocytosis 03/20/2022 L ICA stenosis s/p CEA 03/13/2022 Post-extubation laryngeal edema 03/13/2022 Dyslipidemia 03/12/2022 History of TIA (transient ischemic attack) 03/07 Mixed hyperlipidemia 03/07/2022 TIA (transient ischemic attack) 02/05/2022 Bilateral carotid artery stenosis 01/20/2022 Slurred speech 01/20/2022 T2DM on Metformin 01/20/2022 Essential hypertension 01/20/2022 Closed fracture of left upper extremity 01/21/20 Hypothyroidism 01/20/2022 Constipation 01/20/2022 Resolved Problems Problem Noted Date Diagnosed Date Resolved Date Hyponatremia 03/20/2022 03/25/2022 Symptomatic stenosis of left carotid artery without infarction 02/24/2022 03/12/2022 Immunizations Immunization Administration Dates Next Due COVID-19 ([employer]) Purple Cap Monovalent 07/04/19 21,06/14/2020 Influenza, Unspecified 02/12/2009 Pneumococcal Conjugate 13-Valent (PCV13) 018 Family History Medical History Relation Name Comments Heart disease Brother Constipation Mother Arthritis Sister Heart disease Sister Relation Name Status Comments Brother Mother Sister Social History Tobacco Use Types Packs/Day Years Used Date Smoking Tobacco: Former Passive Smoke Exposure: Never Smokeless Tobacco: Never Tobacco Cessation:Counseling Given: No Comments:Quit smoking 1979, pd x10 years Alcohol Use Standard Drinks/Week Comments No 0 (1 standard drink = 0.6 oz pur e alcohol) OASIS D0700: Social Isolation Answer Da te Recorded Frequency of experiencing loneliness or isolatio n Never 05/22/2022 OASIS A1250: Transportation Answer Date Recorded Lack of Transportation (Medical) No 05/22/2022 Lack of Transportation (Non-Medical) No 05/22/2022 Patient Unable or Declines to Respond No 05/22/2022 OASIS B1300: Health Literacy Answer Rex e Recorded Frequency of needing help to read materials from doctor or pharmacy Never 05/22/2022 AUDIT-C Answer Date Recorded Q1: How often do you have a drink containing alcohol? Never 03/20/2022 Q2: How many drinks containi ng alcohol do you have on a typical day when you are drinking? Patient does not drink Q3: How often do you have si x or more drinks on one occasion? Never 03/20/2022 PHQ-2 Answer Date Recorded Retired PHQ-9: Brief Depression Severity Measure Score 0 01/23/2023 Abuse Screen Answer Date Recorded Unsafe at Home or Work/School Not on file Feels Threatened by Someone? Not on file Does Anyone Keep You from Co ntacting Others or Doint Things Outside the Home? Not on file 07/31/2023 Physical Sign of Abuse Present Not on file 0 07/31/2023 Housing Stability Answer Date Recorded Current Living Arrangements Not on file 07/17 Potentially Unsafe Housing Conditions Not on yefri e 08/06/2023 Family and Community Support Answer Rex e Recorded Help with Day-to-Day Activities Not on file 02/23/2023 Lonely or Isolated Not on file 02/23/2023 Employment Answer Date Recorded Do you want help finding or keeping work or a shira b? Not on file 02/23/2023 Disabilities Answer Date Recorded Concentrating, Remembering, or Making Decisions Difficulty Not on file 08/06/2023 Doing Errands Independently Difficulty Not on fi le 08/06/2023 Education Answer Date Recorded Help with school or training? Not on file Preferred Language Not on file 07/31/2023 PHQ-2 Answer Date Recorded Retired PHQ-9: Brief Depression Severity Measure Score 0 01/23/2023 Comments No Sex and Gender Information Value Date Recorded Sex Assigned at Not on file Legal Sex Female 11:18 AM EDT Gender Identity Not on file Sexual Orientation Not on file Last Filed Vital Signs Vital Sign Reading Time Taken Comments Blood Pressure 122/78 01/23/2023 9:42 AM EDT Pulse 92 01/23/2023 9:42 AM EDT Temperature 36.7 C (98.1 F) 01/26/2023 1:55 PM EDT Respiratory Rate 18 08/06/2022 11:22 AM EDT Oxygen Saturation 95% 01/23/2023 9:42 AM EDT Inhaled Oxygen Concentration - - Weight 86.2 kg (190 lb) 01/26/2023 1:55 PM EDT Height 165.1 cm (5' 5 ) 01/26/2023 1:55 PM EDT Body Mass Index 31.62 01/26/2023 1:55 PM EDT Plan of Treatment Health Maintenance Due Date Last Done Comments DXA SCAN 1940 DIABETIC EYE EXAM 1950 DIABETIC FOOT EXAM 1950 URINE MICROALBUMIN-CREATININ E RATIO (uACR) 1950 TDAP/TD VACCINES (1 - Tdap) 1959 ZOSTER VACCINE (1 of 2) 1990 RSV Vaccine - Adults (1 - 1- dose 75+ series) 2015 ANNUAL WELLNESS VISIT 04/07/2018 Pneumococcal Vaccine 50+ (2 of 2 - PPSV23) 06/10/2018 04/15/2018 LIPID PANEL 01/21/2023 01/21/2022 HEMOGLOBIN A1C 01/22/2023 07/22/2022, 1005/2021, 01/21/2022 COVID-19 Vaccine ( season) 2024 02/19/2021, 07/04/2020, 06/14/2020 INFLUENZA VACCINE 02/15/2025 02/12/2009 Medical Devices Implanted Type Area Supervisor Whipped Topping Device Identifier Shelf Expiration Date Model / Serial / Lot Kt Seal Hemos Abs Floseal Matrx Fast/Prep 10ml - [id number] Implanted:Qty: 1 on 03/12/2022 by David Mcknight MD at [facility] Implant Left: Neck [employer] 11/15/2023 [id number] / / [id number] Hemost Abs Surgifoam Sz100 8x12 10mm - [id number] Implanted:Qty: 1 on 03/12/2022 by David Mcknight MD at [facility] Implant Left: Neck ETHICON DIV OF J AND J 10/02/2025 1974 / / [id number] Hemost Abs Surgicel 4x8in - [id number] Implanted:Qty: 1 on 03/12/2022 by David Mcknight MD at [facility] Implant Left: Neck ETHICON DIV OF J AND J 06/17/2026 1952 / / [id number] Clip Ligat Vasc Horizon Ti Sm Yel 6ct - [id number] Implanted:Qty: 2 on 03/12/2022 by David Mcknight MD at [facility] Implant Left: Neck TELE[employer]LEX MEDICAL 12/08/2026 [id number] / / [id number] Clip Ligat Vasc Horizon Ti Richie 6ct - [id number] Implanted:Qty: 2 on 03/12/2022 by David Mcknight MD at [facility] Implant Left: Neck TELE[employer] MEDICAL 11/24/2026 [id number] / / [id number] Insrt Hip Or3o 2/Mobl Xlpe Sz22/40 - [id number] Implanted:Qty: 1 on 08/04/2022 by Kennedy Chavira MD at [facility] Implant Right: Hip FIGUEROA AND NEPHEW [id number] 04/01/2030 [id number] / / [id number] Hd Fem/Hip [place] Oxinium Tpr 04/30 Pls4 22mm - [id number] Implanted:Qty: 1 on 08/04/2022 by Kennedy Chavira MD at [facility] Implant Right: Hip FIGUEROA AND NEPHEW [id number] 11/12/2031 [id number] / / [id number] Stem Fem/Hip Polarstem Cmtless Colar Ti P/Coat Gu 126deg Sz3 - [id number] Implanted:Qty: 1 on 08/04/2022 by Kennedy Chavira MD at [facility] Implant Right: Hip FIGUEROA AND NEPHEW [id number] 08/08/2028 [id number] / / [id number] Totl Hip Ivan Figueroa Nephew - [id number] Implanted:Qty: 1 on 08/04/2022 by Kennedy Chavira MD at [facility] Implant Right: Hip FIGUEROA AND NEPHEW CAPHIPTOTAL SN2 / / Shll Acet R3 3h Std 52mm - [id number] Implanted:Qty: 1 on 08/04/2022 by Kennedy Chavira MD at [facility] Implant Right: Hip FIGUEROA AND NEPHEW 02/14/2032 [id number] / / [id number] Scrw Sph Hd Reflection 6.5x25mm - [id number] Implanted:Qty: 1 on 08/04/2022 by Kennedy Chavira MD at [facility] Implant Right: Hip FIGUEROA AND NEPHEW 12/06/2031 [id number] / / [id number] Scrw Sph Hd Reflection 6x15mm - [id number] Implanted:Qty: 1 on 08/04/2022 by Kennedy Chavira MD at [facility] Implant Right: Hip FIGUEROA AND NEPHEW 08/27/2031 [id number] / / [id number] Liner Hip Or3o 2/Mobl Sz40/52 - [id number] Implanted:Qty: 1 on 08/04/2022 by Kennedy Chavira MD at [facility] Implant Right: Hip FIGUEROA AND NEPHEW [id number] 06/16/2031 [id number] / / [id number] Procedures Procedure Name Priority Date/Time Associated Diagnosis Comments HEMOGLOBIN A1C Routine 07/22/2022 12:08 PM EST LIPID PANEL Routine 01/21/2022 4:32 AM EDT from Last 3 Months or Most Recently Relevant to Health Maintenance Results * (ABNORMAL) Hemoglobin A1c (07/22/2022 12:08 PM EST) Hemoglobin A1C 6.50(H) 4.80 - 5.60 % 07/22/2022 1:21 PM EST [facility] Blood Venipuncture / Unknown 07/22/2022 12:08 PM EST 07/22/2022 1:08 PM EST Narrative [facility] - 07/22/2022 1:21 PM EST Hemoglobin A1C Ranges: Increased Risk for Diabetes 5.7% to 6.4% Diabetes >= 6.5% Diabetic Goal < 7.0% us Kennedy Chavira MD LAB BLOOD ORDERABLES Final Resu lt [facility]
[address] [place] [address], * (ABNORMAL) Lipid Panel (01/21/2022 4:32 AM EDT) Total Cholesterol 129 0 - 200 mg/dL 01/21/2022 6:01 AM EDT [facility] Triglycerides 91 0 - 150 mg/dL 01/21/2022 6:01 AM EDT [facility] HDL Cholesterol 64(H) 40 - 60 mg/dL 01/21/2022 6:01 AM EDT [facility] LDL Cholesterol 48 0 - 100 mg/dL 01/21/2022 6:01 AM EDT [facility] VLDL Cholesterol 17 5 - 40 mg/dL 01/21/2022 6:01 AM EDT [facility] LDL/HDL Ratio 0.73 01/21/2022 6:01 AM EDT [facility] Blood Venipuncture / Unknown 01/21/2022 4:32 AM EDT 01/21/2022 5:25 AM EDT [facility] - 01/21/2022 6:01 AM EDT Cholesterol Reference Ranges (U.S. Department of Health and Human Services ATP III Classifications) Desirable <200 mg/dL Borderline High 200-239 mg/dL High Risk >240 mg/dL Triglyceride Reference Ranges (U.S. Department of Health and Human Services ATP III Classifications) Normal <150 mg/dL Borderline High 150-199 mg/dL High 200-499 mg/dL Very High >500 mg/dL HDL Reference Ranges (U.S. Department of Health and Human Services ATP III Classifications) Low <40 mg/dl (major risk factor for CHD) High >60 mg/dl ('negative' risk factor for CHD) LDL Reference Ranges (U.S. Department of Health and Human Services ATP III Classifications) Optimal <100 mg/dL Near Optimal 100-129 mg/dL Borderline High 130-159 mg/dL High 160-189 mg/dL Very High >189 mg/dL Wilma Pickard APRN LAB BLOOD ORDERABLES Carmina puente Result [facility]
[address] [place] [address], from Last 3 Months or Most Recently Relevant to Health Maintenance Insurance MEDICARE A & B Member Subscriber Plan / Payer (Ef fective 2005-Present) Name:Malka Rosenberg Relation to Subscriber:Self Name:Malka Rosenberg Payer ID:[id number] ([facility]) Group ID:[id number] Type:MEDICARE SUPPLEMENT Address: [facility] [id number] [place] [id number] Advance Directives * CPR (Attempt to Resuscitate) (Latest Code Status on File) Date Activated Date Inactivated Comments 08/04/2022 3:04 PM 08/06/2022 4:47 PM Question Answer Comments Code Status (Patient has no pulse and is not breathing): CPR (Attempt to Resuscitate) Medical Interventions (Patie nt has pulse or is breathing): Full * CPR (Attempt to Resuscitate) Date Activated Date Inactivated Comments 04/12/2022 9:07 PM 08/04/2022 7:13 AM No physici an signature needed for this code status. Shahbaz as Signed. * CPR (Attempt to Resuscitate) Date Activated Date Inactivated Comments 03/20/2022 1:40 AM 04/01/2022 4:34 PM Question Answer Comments Code Status (Patient has no pulse and is not breathing): CPR (Attempt to Resuscitate) Medical Interventions (Patie nt has pulse or is breathing): Full Support * CPR (Attempt to Resuscitate) Date Activated Date Inactivated Comments 03/12/2022 9:50 AM 2022 2:18 PM Question Answer Comments Code Status (Patient has no pulse and is not breathing): CPR (Attempt to Resuscitate) Medical Interventions (Patie nt has pulse or is breathing): Full Level Of Support Discussed With: Patient * CPR (Attempt to Resuscitate) Date Activated Date Inactivated Comments 02/05/2022 5:10 PM 02/07/2022 4:12 PM Question Answer Comments Code Status (Patient has no pulse and is not breathing): CPR (Attempt to Resuscitate) Medical Interventions (Patie nt has pulse or is breathing): Full Support Level Of Support Discussed With: Patient Care Teams Senior Physician Relationship Specialty Start Date End Date Hai House MD [address] [facility] [address] [place] [address] PCP - General Internal Medicine 03/12/16
--- OUTSIDE RECORDS SUMMARY | 2024-12-07 11:50 | XMS_ITS | Clinical Summary ---
Author Organization Healthcare Address [address] [place] [address] Care Team Providers Care Transformation Lead Name Role Phone Unavailable Primary Care Provider [...]
== END 2024-12-06 23:59 | disposition home or self-care (01) ==
LOC: LAB.DROPOF 12-07 11:49
PROVIDERS: PCP Internal Medicine; Visit Provider Internal Medicine
DX: E78.5 Hyperlipidemia, unspecified (principal); E11.59 Type 2 diabetes mellitus with other circulatory complications; I10 Essential (primary) hypertension; E11.42 Type 2 diabetes mellitus with diabetic polyneuropathy
CPT/HCPCS: 80053; 80061; 83036

== ENCOUNTER 2024-12-12 14:00 | Outpatient (RCR) | payer MEDICARE, BC, SELFPAY ==
--- NOTE | 2024-12-07 15:51 | HMH.RHREAS ---
Rehab Reassessment Rehab OP Re-assessment Start: 11/22/24 14:03 Freq: Status: Active Protocol: Document 12/07/24 15:39 ATILIO (Rec: 12/07/24 15:51 ATILIO [id number]) E-signed By Purvi Lara, PT Oswestry Index Section 1 Pain Intensity The pain is severe and does not vary much Section 2 Personal Care ( increase the pain, but I manage not to change my way of Washing,Dresing) doing it Section 3 Lifting Pain prevents me from lifting weights off the floor Section 4 Walking I have some pain when walking but it does not increase with distance Section 5 Sitting I can sit in my favorite chair for as long as I like Section 6 Standing I cannot stand more than 1 hour without increasing pain Section 7 Sleeping I get pain in bed, but it does not prevent me from sleeping well Section 8 Social Life Pain has restricted my social life and I do not go out often Section 9 Traveling I get some pain when traveling, but none of my usual forms of travel m Section 10 Changing Degreee of My pain seems to be getting better, but improvement is Pain slow Score and Risk Level Oswestry Sc 20 Oswestry Risk Level Moderate Disability Rehab Re-assessment Subjective Subjective Pt reports she feels 25% improved since starting PT. Pt reports continued central low back pain rated 4-5/10 at worst on VAS. Pt reports pain is aggravated by prolonged standing, walking, bending and lifting. Pt reports pain improves with sitting and resting. Pt reports compliance with HEP which seems to help some. Objective Objective Notes Palpation: / TTP of lumbar PS Posture: flexed, resting position 10 degrees of flexion Lumbar AROM: flexion 60, ext to neutral, RLF 5, LLF 10 BLE MMT: 4+/5 grossly Assessment Assessment Notes Pt has attended 5 PT treatment sessions since her initial evaluation. Pt demonstrated improved subjective report of pain, YOLIE score, and strength this date compared to the initial evaluation. Pt continues to demonstrate lumbar AROM deficits and reports moderate low back pain aggravated by standing, walking, bending and lifting. Overall, the pt would continue to benefit from skilled PT to further improve subjective report of pain, posture, lumbar ROM, strength, and functional activity tolerance to improve overall QOL. Patient goals met ST/6 Goals Not Met TTP, ROM, LTG Revised Goals n/a Plan Plan Continue POC Frequency of Therapy 2x/week Duration of therapy 2-4 more weeks Time and Billing Re-Eval Time 10 Re-Eval Billing 0 Units Charge for PT No reassessment? Charge for OT No reassessment? PHYSICIAN CERTIFICATION: I certify the specified therapy services for Malka Rosenberg are required, authorized, and reviewed every 30 days.
== END 2024-12-12 23:59 | disposition home or self-care (01) ==
LOC: PT 14:00
PROVIDERS: PCP Internal Medicine; Visit Provider Internal Medicine
DX: S30.0XXD Contusion of lower back and pelvis, subsequent encounter (principal); M53.3 Sacrococcygeal disorders, not elsewhere classified
CPT/HCPCS: 97110; 97140

== ENCOUNTER 2024-12-28 10:01 | Outpatient (CLI) | payer MEDICARE, BC, SELFPAY ==
[2024-12-28 14:54] LABS: Potassium 4.9 mmoL/L (3.5-5.1)
--- OUTSIDE RECORDS SUMMARY | 2024-12-30 10:04 | XMS_ITS | Clinical Summary ---
Author Organization [facility] Address [address] [place] [address] Care Team Providers Care Shirt Trimmer Name Role Phone Hai House MD Primary Care Provider [phone] Allergies Active Allergy Reactions Criticality Noted Date [...] Take 1 capsule by mouth Daily. Active [place]-3 Fatty Acids (fish oil) 1000 MG capsule [...] Immunizations Immunization Administration Dates Next Due COVID-19 ([employer]) Purple Cap Monovalent 07/04/19 21,06/14/2020 Influenza, Unspecified [...] 02/15/2025 02/12/2009 Medical Devices Implanted Type Area Small Products Ii Assembler Device Identifier Shelf Expiration Date Model / Serial / Lot Kt Seal Hemos Abs Floseal Matrx Fast/Prep 10ml - [id number] Implanted:Qty: 1 on 03/12/2022 by David Mcknight MD at [facility] Implant Left: Neck [employer] 11/15/2023 [id number] / / [id number] Hemost Abs Surgifoam Sz100 8x12 10mm - [id number] Implanted:Qty: 1 on 03/12/2022 by David Mcknight MD at [facility] Implant Left: Neck ETHICON DIV OF J AND J 10/02/2025 1974 / / [id number] Hemost Abs Surgicel 4x8in - [id number] Implanted:Qty: 1 on 03/12/2022 by David Mcknight MD at [facility] Implant Left: Neck ETHICON DIV OF J AND J 06/17/2026 1952 / / [id number] Clip Ligat Vasc Horizon Ti Sm Yel 6ct - [id number] Implanted:Qty: 2 on 03/12/2022 by David Mcknight MD at [facility] Implant Left: Neck TELE[employer]LEX MEDICAL 12/08/2026 [id number] / / [id number] Clip Ligat Vasc Horizon Ti Richie 6ct - [id number] Implanted:Qty: 2 on 03/12/2022 by David Mcknight MD at [facility] Implant Left: Neck [employer]LE[employer] MED[employer] 11/24/2026 [id number] / / [id number] Insrt Hip Or3o 2/Mobl Xlpe Sz22/40 - [id number] Implanted:Qty: 1 on 08/04/2022 by Kennedy Chavira MD at [facility] Implant Right: Hip FIGUEROA AND NEPHEW [id number] 04/01/2030 [id number] / / [id number] Hd Fem/Hip [place] Oxinium Tpr 04/30 Pls4 22mm - [id number] Implanted:Qty: 1 on 08/04/2022 by Kennedy Chavira MD at [facility] Implant Right: Hip FIGUEROA AND NEPHEW [id number] 11/12/2031 [id number] / / [id number] Stem Fem/Hip Polarstem Cmtless Colar Ti P/Coat Gu 126deg Sz3 - [id number] Implanted:Qty: 1 on 08/04/2022 by Kennedy Chavira MD at [facility] Implant Right: Hip FIGUEROA AND NEPHEW [id number] 08/08/2028 [id number] / / [id number] Totl Hip Ivan Figueroa Nephew - [id number] Implanted:Qty: 1 on 08/04/2022 by Kennedy Chavira MD at [facility] Implant Right: Hip FIGUEROA AND NEPHEW CAPHIPTOTAL SN2 / / Shll Acet R3 3h Std 52mm - [id number] Implanted:Qty: 1 on 08/04/2022 by Kennedy Chavira MD at [facility] Implant Right: Hip FIGUEROA AND NEPHEW 02/14/2032 [id number] / / [id number] Scrw Sph Hd Reflection 6.5x25mm - [id number] Implanted:Qty: 1 on 08/04/2022 by Kennedy Chavira MD at [facility] Implant Right: Hip FIGUEROA AND NEPHEW 12/06/2031 [id number] / / [id number] Scrw Sph Hd Reflection 6x15mm - [id number] Implanted:Qty: 1 on 08/04/2022 by Kennedy Chavira MD at [facility] Implant Right: Hip FIGUEROA AND NEPHEW 08/27/2031 [id number] / / [id number] Liner Hip Or3o 2/Mobl Sz40/52 - [id number] Implanted:Qty: 1 on 08/04/2022 by Kennedy Chavira MD at [facility] Implant Right: Hip FIGUEROA AND NEPHEW [id number] 06/16/2031 [id number] / / [id number] Procedures Procedure Name Priority Date/Time Associated Diagnosis Comments HEMOGLOBIN A1C Routine 07/22/2022 12:08 PM EST LIPID PANEL Routine 01/21/2022 4:32 AM EDT from Last 3 Months or Most Recently Relevant to Health Maintenance Results * (ABNORMAL) Hemoglobin A1c (07/22/2022 12:08 PM EST) Hemoglobin A1C 6.50(H) 4.80 - 5.60 % 07/22/2022 1:21 PM EST [facility] Blood Venipuncture / Unknown 07/22/2022 12:08 PM EST 07/22/2022 1:08 PM EST Narrative [facility] - 07/22/2022 1:21 PM EST Hemoglobin A1C Ranges: Increased Risk for Diabetes 5.7% to 6.4% Diabetes >= 6.5% Diabetic Goal < 7.0% us Kennedy Chavira MD LAB BLOOD ORDERABLES Final Resu lt [facility]
[address] [place] [address], * (ABNORMAL) Lipid Panel (01/21/2022 4:32 AM EDT) Total Cholesterol 129 0 - 200 mg/dL 01/21/2022 6:01 AM EDT [facility] Triglycerides 91 0 - 150 mg/dL 01/21/2022 6:01 AM EDT [facility] HDL Cholesterol 64(H) 40 - 60 mg/dL 01/21/2022 6:01 AM EDT [facility] LDL Cholesterol 48 0 - 100 mg/dL 01/21/2022 6:01 AM EDT [facility] VLDL Cholesterol 17 5 - 40 mg/dL 01/21/2022 6:01 AM EDT [facility] LDL/HDL Ratio 0.73 01/21/2022 6:01 AM EDT [facility] Blood Venipuncture / Unknown 01/21/2022 4:32 AM EDT 01/21/2022 5:25 AM EDT [facility] - 01/21/2022 6:01 AM EDT Cholesterol [...] APRN LAB BLOOD ORDERABLES Carmina puente Result [facility]
[address] [place] [address], from Last 3 Months or Most Recently Relevant to Health Maintenance Insurance MEDICARE A & B Member Subscriber Plan / Payer (Ef fective 2005-Present) Name:Malka Rosenberg Relation to Subscriber:Self Name:Makla Rosenberg Payer ID:[id number] ([facility]) Group ID:[id number] Type:MEDICARE SUPPLEMENT Address: [facility] [id number] [place] [id number] Advance Directives * CPR (Attempt to Resuscitate) [...] 04/12/2022 9:07 PM 08/04/2022 7:13 AM No physicia n signature needed for this code status. Shahbaz [...] Of Support Discussed With: Patient Care Teams Shirt Trimmer Relationship Specialty Start Date End Date Hai House MD [address] [facility] [address] [place] [address] PCP - General Internal Medicine 03/12/16
--- OUTSIDE RECORDS SUMMARY | 2024-12-30 10:04 | XMS_ITS | Clinical Summary ---
Author Organization Healthcare Address [address] [place] [address] Care Team Providers Care Duct Layer Supervisor Name Role Phone Unavailable Primary Care Provider [...]
== END 2024-12-28 23:59 | disposition home or self-care (01) ==
LOC: LAB.DROPOF 12-30 10:02
PROVIDERS: PCP Internal Medicine; Visit Provider Internal Medicine
DX: E87.5 Hyperkalemia (principal)
CPT/HCPCS: 84132